=== PATIENT | female | born 1970 | race Caucasian/White ===

== ENCOUNTER 2016-12-07 05:06 | Emergency (ER) | payer MEDICARE, OTHER ==
[~2016-12-07] VITALS: Ht 160 cm; Wt 63.5 kg
[~2016-12-07 05:06] MED LIST: ALBU2.5V14 NEB; ALBU8.5H8 IH; ALPR0.5T PO; AMOX500C PO; BUPR1PAT8 TD; BUPR8TAB SL; CA C1TAB28 PO; CALC300T5 PO; CEFT1FRO2 IV; CIPR500T IV; CIPR500T94 PO; CLIN300C8; CLIN300C8 PO; CLON0.5T3 PO; CLON1TAB3 PO; CYCL-331 PO; CYCL5TAB PO; DULO30CA2 PO; ESCITALOPRAM OXA5 MG PO; ESOM40CA25 PO; ESZO3TAB28 PO; FAMO-63 PO; FENT1PAT17 TD; FLUO10CA13 PO; FLUO20TA11 PO; GABA-585 PO; GABA-586 PO; GLIP5TAB10 PO; HALO2TAB; HYDR-2679 PO; HYDR-2758 PO; HYDR-2766 PO; HYDR-971 PO; HYDR236S MM; HYDR4TAB45 PO; Hydrocodone Bit/Acetaminophen PO; IPRA3AMP NEB; IPRA4AER IH; KETO10TA PO; LACT1CAP25; LACT1CAP25 PO; LEVO125T PO; LEVO750P IV; LIDO700A4 TD; LINE600I IV; LINE600I2 IV; LINE600I9 IV; LINE600T PO; LORA0.5T96 PO; LORA10TA3 PO; METF500T4 PO; METR500T PO; MUPI22OI TP; MUPI22OI2 TP; NALO1DIS PO; NYST1000 SWSW; Nicotine TD; OLAN1CAP12 PO; OLAN1CAP3 PO; OLAN5TAB9 PO; ONDA4TAB10 SL; ONDA4TAB7 PO; OXYC-328; OXYC-328 PO; OXYC10TA PO; PANT40TA3 PO; POTA10CA PO; POTA20TA4 PO; PRED1TAB PO; PRED5TAB PO; QUET25TA5 PO; RISP0.5T3 PO; RISP1TAB3 PO; SUMA100T3 PO; SYMBYAX PO; TIZA4TAB PO; TORA; VITA1TAB3 PO; WARF-78 PO; WARF10TA45 PO; WARF5TAB7 PO; WARF7.5T6 PO; ZOLP10TA PO; ZOLP5TAB PO; [UNRECOGNIZED DRUG - CODE] IV; toradol PO
[2016-12-07] MEDS ORDERED: diphenhydrAMINE 50 MG/ML VIAL IVP ONE (06:00)
[2016-12-07] MEDS ORDERED: IV NORMAL SALINE 1,000ML 1,000 ML IV ONE (06:00)
[2016-12-07] MEDS ORDERED: KETOROLAC 15 MG/ML VIAL. IV ONE (06:00)
[2016-12-07] MEDS ORDERED: ONDANSETRON PF 4 MG/2 ML VIAL. IV ONE (06:00)
--- NOTE | 2016-12-07 06:17 | ED.ADGEN ---
Past History Past Medical History: Bipolar, Bronchitis, COPD, Diabetes, Hypothyroid, Migraines, Pneumonia (CHAITANYA BRIONES DO) Past Surgical History: Appendectomy, Cholecystectomy, Gastric Bypass, Hysterectomy, Other (CHAITANYA BRIONES DO) Smoking: Cigarettes, Greater than 1 pack/day Alcohol Use: None Drug Use: None (CHAITANYA BRIONES DO) Adult General HPI HPI Patient is a 46 year old woman, history of DVT in the left lower extremity, for which she is on Eliquis, COPD, hypertension bipolar disorder, who presents emergency Department with a complaint of a recurrent migraine headache. Patient states that symptoms she is experiencing consist of pressure her bilateral ears , and behind the right eye, consistent with previous migraine symptoms. She states it is more severe migraine that she usually experiences. Denies any triggering symptoms, states she took 2 doses of Imitrex at home without relief, states this usually does help to ramone the symptoms. States she is experiencing photophobia, nausea, and one episode of vomiting. Denies any fevers or chills, any injuries, any vision changes, any weakness numbness or tingling, any other new or different complaints. Patient states that she has been taking all other medications as directed by her primary care provider. She states that usually a "cocktail", including Toradol and Benadryl is affected in treating her headache. (CHAITANYA BRIONES DO) Review of Systems Review of Systems Constitutional: Denies fever or chills [] Eyes: Denies change in visual acuity, redness, or eye pain [] HENT: Denies nasal congestion or sore throat [] Respiratory: Denies cough or shortness of breath [] Cardiovascular: No additional information not addressed in HPI [] GI: Denies abdominal pain, nausea, vomiting, bloody stools or diarrhea [] : Denies dysuria or hematuria [] Musculoskeletal: Denies back pain or joint pain [] Integument: Denies rash or skin lesions [] Neurologic: Denies focal weakness or sensory changes. Headache, located behind the right eye, with pressure in both ears. [] Endocrine: Denies polyuria or polydipsia [] (CHAITANYA BRIONES DO) Current Medications Current Medications Current Medications Medications (Trade) Dose Ordered Sig/Papito Start Time Stop Time Status Last Admin Dose Admin Diphenhydramine HCl (Benadryl) 25 mg 1X ONCE 12/07/16 06:00 12/07/16 06:01 DC 12/07/16 06:00 25 MG Ketorolac Tromethamine (Toradol) 10 mg 1X ONCE 12/07/16 06:00 12/07/16 06:01 DC 12/07/16 06:00 10 MG Lidocaine HCl 3 ml 1X ONCE 12/07/16 07:00 12/07/16 07:01 DC 12/07/16 06:42 3 ML Methylprednisolone Sodium Succinate (SOLU-Medrol 40MG VIAL) 40 mg 1X ONCE 12/07/16 07:00 12/07/16 07:01 DC 12/07/16 07:00 40 MG Ondansetron HCl (Zofran) 4 mg 1X ONCE 12/07/16 06:00 12/07/16 06:01 DC 12/07/16 06:00 4 MG Promethazine HCl (Phenergan) 25 mg STK-MED ONCE 12/07/16 06:58 12/07/16 06:59 DC Promethazine HCl 12.5 mg/Sodium Chloride 50.5 ml @ 101 mls/hr 1X ONCE 12/07/16 07:00 12/07/16 07:29 DC 12/07/16 07:00 101 MLS/HR Sodium Chloride 50 ml @ As Directed STK-MED ONCE 12/07/16 06:59 12/07/16 07:00 DC (JENNIFER ROACH MD) Allergies Allergies Allergies Coded Allergies Type Severity Reaction Last Updated Verified ceftazidime (anhydrous) Allergy Severe Hives 04/05/15 Yes Sulfa (Sulfonamide Antibiotics) Allergy Intermediate Nausea 08/07/14 Yes carbamazepine Allergy Intermediate 05/05/15 Yes cefuroxime axetil Allergy Intermediate NOSE BLEED 08/07/14 Yes chlorpromazine HCl Allergy Intermediate Rash 08/07/14 Yes divalproex sodium Allergy Intermediate Rash 08/07/14 Yes doxepin Allergy Intermediate Rash 08/07/14 Yes lamotrigine Allergy Intermediate double vision, rash 05/05/15 Yes lithium Allergy Intermediate Rash 08/07/14 Yes nalbuphine Allergy Intermediate MORPHINE OK 05/05/15 Yes tetracycline Allergy Intermediate Rash 08/07/14 Yes vancomycin Allergy Intermediate Itching 08/07/14 Yes NSAIDS (Non-Steroidal Anti-Inflamma Adverse Reaction Mild upset stomach 3/9/ 16 Yes (JENNIFER ROACH MD) Physical Exam Physical Exam Constitutional: Well developed, well nourished, no acute distress, non-toxic appearance. [] HENT: Normocephalic, atraumatic, bilateral external ears normal, oropharynx moist, no oral exudates, nose normal. [] Eyes: PERRLA, EOMI, conjunctiva normal, no discharge. [] Neck: Normal range of motion, no tenderness, supple, no stridor. [] Negative jolt accentuation test. Cardiovascular:Heart rate regular rhythm, no murmur, S1, S2, rubs or gallops. [] Lungs & Thorax: Bilateral breath sounds clear to auscultation, no wheezing, rhonchi, rales. No chest wall crepitus or tenderness. [] Abdomen: Bowel sounds normal, soft, no tenderness, no rebound, rigidity, no guarding, no masses, no pulsatile masses. [] Skin: Warm, dry, no erythema, no rash. [] Back: No tenderness, no CVA tenderness. [] Extremities: No tenderness, no cyanosis, no clubbing, ROM intact, no edema. Patient with well-healed surgical incision status post total arthroplasty of the left knee, no swelling in the legs bilaterally. [] Neurologic: Alert and oriented X 3, normal motor function, normal sensory function, no focal deficits noted. [] Psychologic: Affect normal, judgement normal, mood normal. [] (CHAITANYA BRIONES DO) Current Patient Data Vital Signs Vital Signs Date Time Temp Pulse Resp B/P (MAP) Pulse Ox O2 Delivery O2 Flow Rate FiO2 12/07/16 07:51 83 16 140/91 (107) 97 Room Air 12/07/16 05:06 97.8 (JENNIFER ROACH MD) EKG EKG Not indicated. [] (CHAITANYA BRIONES DO) Radiology/Procedures Radiology/Procedures [] (CHAITANYA BRIONES DO) Course & Med Decision Making Course & Med Decision Making Pertinent Labs and Imaging studies reviewed. (See chart for details) Patient denies any new or concerning symptoms, states headache is consistent with previous episodes of migraine. No indication for additional imaging or laboratory studies basic and examination and patient's report. IV placed, patient given Toradol, IV fluids, Zofran and Benadryl, due to stated allergies. On reevaluation, patient states that the "edge is off" after receiving medications, she still remains uncomfortable. She confirms that Phenergan has been used previously without issue, she was then ordered Phenergan IV, along with Solu-Medrol, and nebulized lidocaine. She remains stable in the emergency department, receiving medications at time of shift change. I did discuss findings as above and clinical course with Dr. Roach, who will reevaluate the patient after additional medications are administered and disposition appropriately. (CHAITANYA BRIONES DO) Course & Med Decision Making 46-year-old female presenting to the ER with a headache similar to previous migraines. Vital signs unremarkable. Patient was signed out to me at sign out at 6 AM. Plans to follow-up on patient's condition after medications given. On examination the patient has no evidence of neck stiffness. Negative Kernig sign. Negative Brudzinski sign. She was feeling better and subsequent discharged home. The patient was then discharged home in stable condition to follow up with their primary care physician over the next 2-3 days. They were to return if their symptoms worsened or if they were concerned for any reason. [id number] discharge instructions and return precautions were given. Patient' s questions were answered to their satisfaction. Patient is comfortable plan. (JENNIFER ROACH MD) Final Impression Final Impression [] Problems: (CHAITANYA BRIONES DO) Dragon Disclaimer Dragon Disclaimer This electronic medical record was generated, in whole or in part, using a voice recognition dictation system. (CHAITANYA BRIONES DO) CHAITANYA BRIONES DO Dec 07, 2016 06:17 JENNIFER ROACH MD Dec 07, 2016 13:01
[2016-12-07] MEDS ORDERED: PROMETHAZINE 25 MG/ML VIAL IV ONE (06:58)
[2016-12-07] MEDS ORDERED: IV NORMAL SALINE 50ML 50 ML ONE (06:59)
[2016-12-07] MEDS ORDERED: methylPREDNISolone SOD SUCC PF 40 MG/ML VIAL. IV ONE (07:00)
[2016-12-07] MEDS ORDERED: PROMETHAZINE 12.5 MG in IV NORMAL SALINE 50ML 50 ML IV ONE (07:00)
[2016-12-07] MEDS ORDERED: LIDOCAINE 1% PF 30 ML VIAL. INH ONE (07:00)
[2016-12-07 07:51] VITALS: BP 140/91
== END 2016-12-07 07:44 | disposition home or self-care (01) ==
LOC: ER 05:06
DX: R51 Headache (principal); H93.8X3 Other specified disorders of ear, bilateral; F31.9 Bipolar disorder, unspecified; J44.9 Chronic obstructive pulmonary disease, unspecified; I10 Essential (primary) hypertension; G43.909 Migraine, unspecified, not intractable, without status migrainosus; E03.9 Hypothyroidism, unspecified; E11.9 Type 2 diabetes mellitus without complications; F17.210 Nicotine dependence, cigarettes, uncomplicated; Z98.84 Bariatric surgery status; Z88.2 Allergy status to sulfonamides; Z88.1 Allergy status to other antibiotic agents; Z88.8 Allergy status to other drugs, medicaments and biological substances
CPT/HCPCS: 94640; 96361; 96365; 96375; 99284; J1200; J1885; J2001; J2405; J2550; J2920; J7030

== ENCOUNTER 2017-01-22 04:00 | Emergency (ER) | payer MEDICARE, OTHER ==
[~2017-01-22] VITALS: Ht 160 cm; Wt 70.3 kg
--- NOTE | 2017-01-22 04:18 | PHYS DOC ---
Past History Past Medical History: Bipolar, Bronchitis, COPD, Diabetes, Hypothyroid, Migraines, Pneumonia Past Surgical History: Appendectomy, Cholecystectomy, Gastric Bypass, Hysterectomy, Other Smoking: Cigarettes, Greater than 1 pack/day Alcohol Use: None Drug Use: None Adult General Chief Complaint Chief Complaint: LOWER EXT PAIN HPI HPI Patient is a 46 year old F who presents with right hip pain. Patient states that she does not walk and uses a wheelchair and as she was transferring from the toilet to wheelchair she fell hitting her right hip on the arm of her wheelchair. Patient states she's had right hip pain ever since. Patient states the pain is into her right buttocks and is nonradiating. Patient denies any other injuries. Patient has no other complaints. Review of Systems Review of Systems GEN: Denies fevers, chills, sweats HEENT: Denies blurred vision, sore throat CV: Denies chest pain RESP: Denies shortness of air, cough GI: Denies n/v/d NEURO: Denies confusion, dizziness MSK: Right hip pain Allergies Allergies Allergies Coded Allergies Type Severity Reaction Last Updated Verified ceftazidime (anhydrous) Allergy Severe Hives 04/05/15 Yes Sulfa (Sulfonamide Antibiotics) Allergy Intermediate Nausea 08/07/14 Yes carbamazepine Allergy Intermediate 05/05/15 Yes cefuroxime axetil Allergy Intermediate NOSE BLEED 08/07/14 Yes chlorpromazine HCl Allergy Intermediate Rash 08/07/14 Yes divalproex sodium Allergy Intermediate Rash 08/07/14 Yes doxepin Allergy Intermediate Rash 08/07/14 Yes lamotrigine Allergy Intermediate double vision, rash 05/05/15 Yes lithium Allergy Intermediate Rash 08/07/14 Yes nalbuphine Allergy Intermediate MORPHINE OK 05/05/15 Yes tetracycline Allergy Intermediate Rash 08/07/14 Yes vancomycin Allergy Intermediate Itching 08/07/14 Yes NSAIDS (Non-Steroidal Anti-Inflamma Adverse Reaction Mild upset stomach Yes Physical Exam Physical Exam GEN.: No apparent distress. Alert and oriented. HEENT: Head is normocephalic, atraumatic NECK: Supple. LUNGS: CTAB. HEART: RRR, S1, S2 present. Peripheral pulses intact ABDOMEN: Soft, nontender. Positive bowel sounds. EXTREMITIES: Without any cyanosis, positive tenderness to palpation right hip with decreased range of motion secondary to pain. Tenderness to palpation of the right buttocks however no ecchymotic bruising seen NEUROLOGIC: Normal speech, normal tone PSYCHIATRIC: Normal affect, normal mood. SKIN: No ulcerations EKG EKG [] Radiology/Procedures Radiology/Procedures X-ray of the right hip and pelvis shows no obvious fracture [] Course & Med Decision Making Course & Med Decision Making Pertinent Labs and Imaging studies reviewed. (See chart for details) ED course: Patient was seen and examined in the emergency room x-rays of the right hip and pelvis were ordered, 50 g of fentanyl was ordered IM 0516: Updated patient on x-rays which showed no obvious fracture, patient was feeling better after pain medication administration and was ready go home. Recommended short-term follow-up with PCP for further evaluation and management. MDM: After reviewing the chart, CC/HPI/PMH, physical exam, [radiological results], I do not believe the patient has a significant right lower extremity injury warranting further workup and/or admission at this time. I believe patient is stable for discharge with short-term follow-up with her PCP in one to 2 days. Patient and family are comfortable being discharged. Additional verbal discharge instructions were provided to the patient and that if symptoms get worse or any new symptoms arise that are worrisome to the patient she is to return to the emergency room immediately [] Dragon Disclaimer Dragon Disclaimer This chart was dictated in whole or in part using Voice Recognition software in a busy, high-work load, and often noisy Emergency Department environment. It may contain unintended and wholly unrecognized errors or omissions. Departure Departure: Impression: Primary Impression: Right hip pain Disposition: 01 HOME, SELF-CARE Condition: IMPROVED Referrals: MATHEUS KIRK MD (PCP) Patient Instructions: Hip Pain Additional Instructions: Please follow-up with your family doctor in the next one to 2 days HUI ARANGO DO Jan 22, 2017 04:18
[2017-01-22] MEDS ORDERED: fentaNYL PF 100 MCG/2 ML VIAL IM ONE (05:00)
[2017-01-22 05:55] VITALS: BP 161/89
--- NOTE | 2017-01-22 08:01 | RAD ---
Indication persistent right hip pain associated with a fall 3 days previously. An AP view of the pelvis was obtained as well as targeted AP and frog leg views of the right hip. Chronic changes associated with the left hip are noted. No acute bony finding is seen
== END 2017-01-22 05:30 | disposition home or self-care (01) ==
LOC: ER 04:00
DX: M25.551 Pain in right hip (principal); J44.9 Chronic obstructive pulmonary disease, unspecified; E11.9 Type 2 diabetes mellitus without complications; E03.9 Hypothyroidism, unspecified; G43.909 Migraine, unspecified, not intractable, without status migrainosus; F31.9 Bipolar disorder, unspecified; F17.210 Nicotine dependence, cigarettes, uncomplicated; Z88.6 Allergy status to analgesic agent; Z88.1 Allergy status to other antibiotic agents; Z88.2 Allergy status to sulfonamides; Z88.8 Allergy status to other drugs, medicaments and biological substances; W05.0XXA Fall from non-moving wheelchair, initial encounter; Y93.89 Activity, other specified; Y99.8 Other external cause status; Y92.89 Other specified places as the place of occurrence of the external cause
CPT/HCPCS: 73502; 96372; 99284; J3010

== ENCOUNTER 2017-02-12 02:14 | Emergency (ER) | payer MEDICARE, OTHER ==
[~2017-02-12] VITALS: Ht 160 cm; Wt 71.6 kg
[2017-02-12] MEDS ORDERED: IV NORMAL SALINE 1,000ML 1,000 ML IV SCH (03:30)
[2017-02-12] MEDS ORDERED: diphenhydrAMINE 50 MG/ML VIAL IVP ONE (04:15)
[2017-02-12] MEDS ORDERED: HALOPERIDOL LACT 5 MG/ML VIAL. IVP ONE (04:15)
[2017-02-12] MEDS ORDERED: KETOROLAC 30 MG/ML VIAL. IV ONE (04:15)
[2017-02-12] MEDS ORDERED: KETOROLAC 30 MG/ML VIAL. ONE (04:18)
[2017-02-12] MEDS ORDERED: HALOPERIDOL LACT 5 MG/ML VIAL. ONE (04:18)
[2017-02-12] MEDS ORDERED: diphenhydrAMINE 50 MG/ML VIAL ONE (04:18)
[2017-02-12 04:32] LABS: BARBITURATES NEG (NEG); BENZODIAZEPINES NEG (NEG); CANNABINOIDS NEG (NEG); COCAINE POS (NEG); METHADONE NEG (NEG); OPIATES POS (NEG); PHENCYCLIDINE NEG (NEG)
[2017-02-12 04:33] LABS: AMPHETAMINE/METHAMPHETAMINE NEG (NEG)
[2017-02-12 04:38] LABS: ALBUMIN 3.4 g/dL (3.4-5.0); CALCIUM 8.9 mg/dL (8.5-10.1); CREATININE 1.1 mg/dL (0.6-1.0); DIRECT BILIRUBIN 0.1 mg/dL (0.0-0.2); GFR 53.5; POTASSIUM 4.1 mmol/L (3.5-5.1); TOTAL BILIRUBIN 0.2 mg/dL (0.2-1.0); TOTAL PROTEIN 7.7 g/dL (6.4-8.2)
[2017-02-12 04:42] LABS: CLARITY,URINE CLEAR; COLOR,URINE STRAW
[2017-02-12 04:45] LABS: AMORPHOUS SEDIMENT,UR PRESENT /HPF; BACTERIA,URINE FEW /HPF (0-FEW); BILIRUBIN,URINE NEG (NEG); GLUCOSE,URINE NEG (NEG); NITRITE,URINE NEG (NEG); SQUAMOUS EPITHELIAL CELL,UR FEW /LPF; UROBILINOGEN,URINE 0.2 mg/dL (0.2 mg/dL); WBC,URINE 0 /HPF (0-4)
[2017-02-12 04:49] LABS: BASO # 0.1 x10^3/uL (0.0-0.2); BASO % 0 % (0-3); EOS % 0 % (0-3); HEMATOCRIT 45.2 % (36.0-47.0); HEMOGLOBIN 14.5 g/dL (12.0-15.5); LYMPH # 5.2 x10^3/uL (1.0-4.8); LYMPH % 16 % (24-48); MEAN CORPUSCULAR HEMOGLOBIN 28 pg (25-35); MEAN CORPUSCULAR HGB CONC 32 g/dL (31-37); MEAN CORPUSCULAR VOLUME 86 fL (79-100); MONO # 2.2 x10^3/uL (0.0-1.1); MONO % 7 % (0-9); NEUT # 25.8 x10^3uL (1.8-7.7); NEUT % 77 % (31-73); PLATELET COUNT 344 x10^3/uL (140-400); RED BLOOD COUNT 5.25 x10^6/uL (3.50-5.40); RED CELL DISTRIBUTION WIDTH 14.8 % (11.5-14.5); WHITE BLOOD COUNT 33.4 x10^3/uL (4.0-11.0)
--- NOTE | 2017-02-12 04:58 | PHYS DOC ---
General Chief Complaint: HEADACHE Stated Complaint: HEADACHE X 2 DAYS Time Seen by MD: 02:31 Source: patient, other (live-in home health nurse) Exam Limitations: no limitations Problems: History of Present Illness Initial Comments Pt is 46/F to ED c/o headache. Pt states she gets chronic migraine headaches, states she has had frontal DAMON 10/ 10 throbbing for 24 hours. DAMON worse when up and active, no cough/fever/chills/ rash/nuchal rigidity. No focal neurodeficits, mild photophobia and nausea no emesis. DAMON not "worst of life" denies weight loss. She is brought to department by her home health nurse who adds that pt recently inpatient detox x 3 days for cocaine/crack but signed herself out. Reportedly used $800 cocaine in 24 hours past week, last use was $40 crack earlier today. Reportedly unable to obtain any drugs this evening so came to ED "drug seeking. " Pt recently received epidural steroid injections for back pain, DAMON not relieved with position aka spinal DAMON. DAMON is worse with activity and pt has had dark urine no cp/sob. Pt requesting pain meds. On eliquis for DVT PCP Dr Lubin Timing/Duration: 24 hours Severity: severe Modifying Factors: improves with other Associated Symptoms: headaches, other Allergies: Coded Allergies: ceftazidime (anhydrous) (Verified Allergy, Severe, Hives, 04/05/15) Sulfa (Sulfonamide Antibiotics) (Verified Allergy, Intermediate, Nausea, ) information on this allergy obtained when Dr. Bhandari called inpatient pharmacy looking for abx suggestion on this patient with multiple abx allergies.s zayra carbamazepine (Verified Allergy, Intermediate, 05/05/15) double vision cefuroxime axetil (Verified Allergy, Intermediate, NOSE BLEED, 08/07/14) nose bleed chlorpromazine HCl (Verified Allergy, Intermediate, Rash, 08/07/14) divalproex sodium (Verified Allergy, Intermediate, Rash, 08/07/14) doxepin (Verified Allergy, Intermediate, Rash, 08/07/14) lamotrigine (Verified Allergy, Intermediate, double vision, rash, 05/05/15 ) lithium (Verified Allergy, Intermediate, Rash, 08/07/14) nalbuphine (Verified Allergy, Intermediate, MORPHINE OK, 05/05/15) tetracycline (Verified Allergy, Intermediate, Rash, 08/07/14) vancomycin (Verified Allergy, Intermediate, Itching, 08/07/14) NSAIDS (Non-Steroidal Anti-Inflamma (Verified Adverse Reaction, Mild, upset stomach, 08/26/15) patent states NSAIDS upset her stomach Past Medical History Medical History: diabetes, other (cocaine addiction, bipolar, COPD, DM, hypothyroid, migraines, DVT, HTN) Surgical History: appendectomy, cholecystectomy, other (gastric bypass, hysterectomy, splenectomy) Family History Significant Family History: no pertinent family hx Social History Smoker: greater than 1 pack/day Alcohol: none Drugs: cocaine Review of Systems Constitutional: denies chills, denies fever, denies malaise, denies weakness EENTM: denies eye pain, denies blurred vision, denies ear pain, denies nose pain, denies throat pain, denies mouth pain Respiratory: denies cough, denies shortness of breath, denies wheezing Cardiovascular: denies chest pain, denies palpitations, denies syncope Gastrointestinal: denies abdominal pain, denies diarrhea, denies nausea, denies vomiting Genitourinary: denies dysuria, denies frequency, denies hematuria Musculoskeletal: see HPI Psychiatric/Neurological: see HPI Hematologic/Lymphatic: see HPI Physical Exam General Appearance: mild distress Eyes: bilateral eye normal inspection, bilateral eye PERRL, bilateral eye EOMI Ear, Nose, Throat: hearing grossly normal, normal ENT inspection (absent dentition, dry membranes), normal pharynx Neck: non-tender, supple Respiratory: normal breath sounds, no respiratory distress Cardiovascular: normal peripheral pulses, regular rate, rhythm Gastrointestinal: non tender, soft Back: no CVA tenderness, no vertebral tenderness Extremities: non-tender, normal inspection Neurologic/Psychiatric: back stayer II-XII nml as tested, no motor/sensory deficits, alert, oriented x 3, other (athetosis) Skin: normal color, warm/dry Orders, Labs, Meds EKG: NSR 97 bpm, nonspecific ST T changes no STEMI. Interpreted by me. Pertinent labs: White blood cells 33.4, d-dimer 0.22, urine drug screen positive for opiates and cocaine 0517: Pt received NS bolus, toradol/benadryl/haldol IV. RN notifies me that pt feeling better, DAMON resolved, she is requesting d/c home. Departure Time of Disposition: 05:18 Disposition: 01 HOME, SELF-CARE Diagnosis: Headache, cocaine abuse, leukocytosis, tobaccoism Condition: IMPROVED Patient Instructions: Cocaine Abuse and Chemical Dependency, Leukocytosis, Migraine Headache, [id number] Additional Instructions: Discontinue substance abuse seek medical assistance if necessary. Aggressive hydration with Gatorade and water. [id number] Tylenol as needed. Continue current medications. Follow-up with your doctor on Monday for recheck. Return to ED with new or changing symptoms. NATHALIE REEDER DO Feb 12, 2017 04:58
[2017-02-12 05:10] VITALS: BP 122/74
[2017-02-12 05:14] LABS: % ATYL 3 % (0-0); % BANDS 2 % (0-9); % LYMPHS 18 % (24-48); % MONOS 11 % (0-10); % SEGS 66 % (35-66); PLT ESTIMATE ADEQUATE (ADEQUATE)
== END 2017-02-12 05:15 | disposition home or self-care (01) ==
LOC: ER 02:14
DX: R51 Headache (principal); D72.829 Elevated white blood cell count, unspecified; F14.10 Cocaine abuse, uncomplicated; F17.210 Nicotine dependence, cigarettes, uncomplicated; E11.9 Type 2 diabetes mellitus without complications; E03.9 Hypothyroidism, unspecified; J44.9 Chronic obstructive pulmonary disease, unspecified; I10 Essential (primary) hypertension; G43.909 Migraine, unspecified, not intractable, without status migrainosus; Z86.718 Personal history of other venous thrombosis and embolism; Z98.84 Bariatric surgery status; Z88.6 Allergy status to analgesic agent; Z88.2 Allergy status to sulfonamides; Z88.8 Allergy status to other drugs, medicaments and biological substances; Z88.1 Allergy status to other antibiotic agents
CPT/HCPCS: 36415; 51701; 80048; 80076; 80307; 81001; 82550; 83735; 84484; 85007; 85025; 85379; 96361; 96374; 96375; 99285; G0480; J1200; J1630; J1885; G0479; J7030

== ENCOUNTER 2017-04-06 19:45 | Emergency (ER) | payer MEDICARE, OTHER ==
[~2017-04-06] VITALS: Ht 160 cm; Wt 71.6 kg
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
[2017-04-06] MEDS ORDERED: IOHEXOL 300 MG/ML 75 ML VIAL. IV ONE (21:15)
[2017-04-06] MEDS ORDERED: CONTRAST GIVEN MC PRN (21:30)
[2017-04-06] MEDS ORDERED: IOHEXOL 240 MG/ML 50ML VIAL. PO ONE (21:30)
[2017-04-06] MEDS ORDERED: MORPHINE SULFATE 10 MG/ML SYRINGE. SQ ONE (21:30)
--- NOTE | 2017-04-06 23:04 | RAD ---
CT pulmonary angiogram with intravenous contrast History: Fall, pain. Comparison: CT chest February 14, 2014. Technique: CT pulmonary angiogram of the chest with attention to the pulmonary arteries was performed after the administration of intravenous contrast, 75 mL Omnipaque-300. Axial 2-D reconstructions were obtained. Coronal 3-D MIPS were obtained of the pulmonary arterial vasculature of the chest. Exposure: One or more of the following individualized dose reduction techniques were utilized for this examination: 1. Automated exposure control 2. Adjustment of the mA and/or kV according to patient size 3. Use of iterative reconstruction technique Findings: Pulmonary arteries are adequately opacified. There is no evidence of pulmonary embolism. Trachea and mainstem bronchi appear patent. Visualized thyroid appears symmetric. No acute airspace disease is identified. No pneumothorax or pleural effusion is seen. No mediastinal lymphadenopathy is seen. Thoracic aorta has normal caliber is without evidence of dissection. Heart and pericardium are unremarkable. Multiple old left rib fracture deformities are seen. 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 Impression: 1. No evidence of pulmonary embolism. No acute abnormality identified in the chest. Electronically signed by: Martin Amos MD (04/06/2017 11:01 PM) [facility]
--- NOTE | 2017-04-06 23:09 | RAD ---
CT Abdomen and Pelvis With Intravenous Contrast: History: Fall, pain. Comparison: CT abdomen pelvis August 26, 2015. Technique: After administration of oral and intravenous contrast administration, 75 mL Omnipaque-300, CT of the abdomen and pelvis was performed. Exposure: One or more of the following individualized dose reduction techniques were utilized for this examination: 1. Automated exposure control 2. Adjustment of the mA and/or kV according to patient size 3. Use of iterative reconstruction technique Findings: Intrahepatic and extrahepatic biliary dilatation is favored to be reservoir effect from patient's cholecystectomy. No focal hepatic mass is identified. Spleen is absent. Pancreas and bilateral adrenal glands unremarkable. Bilateral kidneys enhance symmetrically. Right kidney demonstrates 1.7 cm cyst. No bowel obstruction or inflammation is seen. No free air or free fluid is identified. Urinary bladder is unremarkable. Uterus is absent. Left ovarian follicle seen. 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 Degenerative changes are present in the spine. No acute osseous traumatic injury is identified. Impression: 1. No acute abnormality identified in the abdomen or pelvis. Electronically signed by: Martin Amos MD (04/06/2017 11:06 PM) [facility]
[2017-04-06 23:34] LABS: ALBUMIN 2.7 g/dL (3.4-5.0); ALBUMIN/GLOBULIN RATIO 0.7 (1.0-1.7); CALCIUM 8.4 mg/dL (8.5-10.1); CREATININE 0.8 mg/dL (0.6-1.0); GFR 77.2; MAGNESIUM 1.7 mg/dL (1.8-2.4); POTASSIUM 3.6 mmol/L (3.5-5.1); TOTAL BILIRUBIN 0.2 mg/dL (0.2-1.0); TOTAL PROTEIN 6.6 g/dL (6.4-8.2)
[2017-04-07 00:24] LABS: HEMATOCRIT 41.6 % (36.0-47.0); HEMOGLOBIN 13.5 g/dL (12.0-15.5); RED BLOOD COUNT 4.79 x10^6/uL (3.50-5.40); RED CELL DISTRIBUTION WIDTH 15.1 % (11.5-14.5); WHITE BLOOD COUNT 21.9 x10^3/uL (4.0-11.0)
[2017-04-07 01:03] VITALS: BP 101/80
--- NOTE | 2017-04-07 11:08 | RAD ---
2 view CXR: Clinical indications: Injury from fall tonight. Right-sided rib pain and chest pain. Comparison: April 23, 2016.. Findings: No acute lung infiltrate or pleural effusion or pulmonary edema or lung mass or pneumothorax is seen. The heart size, pulmonary vasculature, mediastinum and both josefina are unremarkable. Old healed left rib cage fractures and right clavicular fracture and proximal right humerus fracture is seen. Impression: No acute radiographic abnormality is seen.
== END 2017-04-07 01:06 | disposition home or self-care (01) ==
LOC: ER 19:45
DX: S20.211A Contusion of right front wall of thorax, initial encounter (principal); D72.829 Elevated white blood cell count, unspecified; E83.42 Hypomagnesemia; E46 Unspecified protein-calorie malnutrition; J44.9 Chronic obstructive pulmonary disease, unspecified; E11.9 Type 2 diabetes mellitus without complications; E03.9 Hypothyroidism, unspecified; F31.9 Bipolar disorder, unspecified; G43.909 Migraine, unspecified, not intractable, without status migrainosus; F17.210 Nicotine dependence, cigarettes, uncomplicated; Z86.718 Personal history of other venous thrombosis and embolism; Z98.84 Bariatric surgery status; Z90.49 Acquired absence of other specified parts of digestive tract; Z90.710 Acquired absence of both cervix and uterus; Z90.81 Acquired absence of spleen; Z88.2 Allergy status to sulfonamides; Z88.1 Allergy status to other antibiotic agents; Z88.6 Allergy status to analgesic agent; Z88.8 Allergy status to other drugs, medicaments and biological substances; W06.XXXA Fall from bed, initial encounter; Y93.89 Activity, other specified; Y99.8 Other external cause status; Y92.89 Other specified places as the place of occurrence of the external cause
CPT/HCPCS: 36415; 71020; 71275; 74177; 80053; 83735; 84484; 85027; 85610; 85730; 96372; 99285; J2270; Q9966; Q9967

== ENCOUNTER → 2017-07-25 | Outpatient (CLI) | payer MEDICARE, OTHER ==
[~2017-07-25] MED LIST changes: +WARF-31 PO; -WARF5TAB7 PO
--- NOTE | 2017-07-25 13:24 | RAD ---
Right clavicle, 07/25/2017: History: Clavicular deformity There is extensive deformity of the proximal and mid clavicle compatible with old trauma. Correlation with the CT study of 04/06/2017 shows bony fusion of the sternoclavicular articulation. 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 No acute clavicular fracture is identified. There is also extensive proximal right humeral deformity compatible with old trauma. IMPRESSION: Extensive chronic posttraumatic changes involving the right clavicle as described above.
== END | disposition home or self-care (01) ==
LOC: PMG 12:50
PROVIDERS: ATTEND Physician Assistant Medical
DX: M95.8 Other specified acquired deformities of musculoskeletal system (principal); F17.210 Nicotine dependence, cigarettes, uncomplicated; Z98.890 Other specified postprocedural states
CPT/HCPCS: 73000

== ENCOUNTER 2017-08-03 21:43 | Emergency (ER) | payer MEDICARE, OTHER ==
[~2017-08-03] VITALS: Ht 160 cm; Wt 71.6 kg
[2017-08-03] MEDS ORDERED: IV NORMAL SALINE 1,000ML 1,000 ML IV ONE (23:00)
[2017-08-03] MEDS ORDERED: KETOROLAC 30 MG/ML VIAL. IV ONE (23:00)
[2017-08-03] MEDS ORDERED: PROCHLORPERAZINE 10 MG/2 ML VIAL. IV ONE (23:00)
[2017-08-03] MEDS ORDERED: diphenhydrAMINE 50 MG/ML VIAL IVP ONE (23:00)
[2017-08-03 23:18] LABS: BASO # 0.1 x10^3/uL (0.0-0.2); BASO % 1 % (0-3); EOS # 0.3 x10^3/uL (0.0-0.7); EOS % 2 % (0-3); HEMATOCRIT 39.5 % (36.0-47.0); HEMOGLOBIN 12.8 g/dL (12.0-15.5); LYMPH # 5.8 x10^3/uL (1.0-4.8); LYMPH % 33 % (24-48); MEAN CORPUSCULAR HEMOGLOBIN 27 pg (25-35); MEAN CORPUSCULAR HGB CONC 32 g/dL (31-37); MEAN CORPUSCULAR VOLUME 85 fL (79-100); MONO # 1.6 x10^3/uL (0.0-1.1); MONO % 9 % (0-9); NEUT # 9.7 x10^3uL (1.8-7.7); NEUT % 55 % (31-73); PLATELET COUNT 422 x10^3/uL (140-400); RED BLOOD COUNT 4.68 x10^6/uL (3.50-5.40); RED CELL DISTRIBUTION WIDTH 16.5 % (11.5-14.5); WHITE BLOOD COUNT 17.5 x10^3/uL (4.0-11.0)
--- NOTE | 2017-08-03 23:21 | EKG ---
[address] [address] Test Date: 2017-08-03 Test Time: 23:02:05 Pat Name: DARCI ANDREA Department: Room: Gender: F Institution Director: : 1970 Requested By: BRENDA YOUNGBLOOD Order Number: [id number] Reading MD: Philip Stock Measurements Intervals [place] Rate: 90 P: 0 MT: 178 QRS: -10 QRSD: 86 T: 10 QT: 356 QTc: 440 Interpretive Statements SINUS RHYTHM LEFTWARD AXIS NONSPECIFIC ST-T WAVE CHANGES. POSSIBLY ABNORMAL ECG RI6.01 Compared to ECG 02/12/2017 03:22:45 Left-axis deviation now present Electronically Signed On 08-09-2017 9:32:51 [employer] by Philip Stock
[2017-08-03 23:26] LABS: ALBUMIN/GLOBULIN RATIO 0.7 (1.0-1.7); CALCIUM 8.6 mg/dL (8.5-10.1); GFR 59.7; POTASSIUM 3.2 mmol/L (3.5-5.1); TOTAL BILIRUBIN 0.1 mg/dL (0.2-1.0); TOTAL PROTEIN 7.4 g/dL (6.4-8.2)
[2017-08-03 23:55] LABS: % BANDS 3 % (0-9); % EOS 1 % (0-5); % LYMPHS 42 % (24-48); % MONOS 5 % (0-10); % SEGS 49 % (35-66)
[2017-08-03 23:56] LABS: PLT ESTIMATE ADEQUATE (ADEQUATE)
[2017-08-04] MEDS ORDERED: IV NORMAL SALINE 1,000ML 1,000 ML IV SCH
[2017-08-04] MEDS ORDERED: ONDANSETRON PF 4 MG/2 ML VIAL. IV ONE
[2017-08-04] MEDS ORDERED: POTASSIUM CHLORIDE 20 MEQ TABLET.ER. PO ONE
[2017-08-04] MEDS ORDERED: BUTA1TAB23 PO (00:03)
--- NOTE | 2017-08-04 00:04 | PHYS DOC ---
Past History Past Medical History: Bipolar, Bronchitis, COPD, Diabetes, DVT, Gallstones, Hypothyroid, Liver Disease, Migraines, Pneumonia, Other Past Surgical History: Appendectomy, Cholecystectomy, Gastric Bypass, Hysterectomy, Spleenectomy, Tonsillectomy, Other Smoking: Cigarettes, Greater than 1 pack/day Alcohol Use: None Drug Use: None, Cocaine Adult General Chief Complaint Chief Complaint: HEADACHE HPI HPI Patient is a 46 year old female who presents with complaint of migraine headache. Patient states that her headache started 2 days ago. Patient states that she has history of migraine headaches and last had a similar headache 6 months ago. Patient states that she averages approximately 2-3 headaches per year. Patient states that she took Imitrex at home but did not help with her symptoms. Patient states that her pain is right-sided. Patient does have mild photophobia and nausea associated with her symptoms. Patient denies any fever, vision loss, or unilateral weakness. The patient rates her headache currently as 8 out of 10 on my evaluation. Patient states that she saw her doctor earlier today and states that his CBC showed that she had a white count of 19. Patient' s physician started her on doxycycline. Patient currently denies any cough, chest discomfort, ear pain, dysuria, or hematuria. Review of Systems Review of Systems Constitutional: Denies fever or chills [] Eyes: Photophobia, denies change in visual acuity, redness, or eye pain [] HENT: Denies nasal congestion or sore throat [] Respiratory: Denies cough or shortness of breath [] Cardiovascular: Denies chest pain or edema[] GI: Denies abdominal pain, nausea, vomiting, bloody stools or diarrhea [] : Denies dysuria or hematuria [] Musculoskeletal: Denies back pain or joint pain [] Integument: Denies rash or skin lesions [] Neurologic: Headache, denies focal weakness or sensory changes [] All other systems were reviewed and found to be within normal limits, except as documented in this note. Current Medications Current Medications Current Medications Medications (Trade) Dose Ordered Sig/[place] Start Time Stop Time Status Last Admin Dose Admin Diphenhydramine HCl (Benadryl) 50 mg 1X ONCE 08/03/17 23:00 08/03/17 23:01 DC 08/03/17 23:06 50 MG Fentanyl Citrate (Fentanyl 2ml Vial) 50 mcg 1X ONCE 08/04/17 00:00 08/04/17 00:01 08/03/17 23:55 50 MCG Ketorolac Tromethamine (Toradol) 30 mg 1X ONCE 08/03/17 23:00 08/03/17 23:01 DC 08/03/17 23:07 30 MG Ondansetron HCl (Zofran) 4 mg 1X ONCE 08/04/17 00:00 08/04/17 00:01 08/03/17 23:54 4 MG Potassium Chloride (Klor-Con) 40 meq 1X ONCE 08/04/17 00:00 08/04/17 00:01 08/03/17 23:54 40 MEQ Prochlorperazine Edisylate (Compazine) 10 mg 1X ONCE 08/03/17 23:00 08/03/17 23:01 DC 08/03/17 23:07 10 MG Sodium Chloride 1,000 ml @ 1,000 mls/hr Q1H 08/04/17 00:00 08/04/17 00:00 DC Allergies Allergies Allergies Coded Allergies Type Severity Reaction Last Updated Verified ceftazidime Allergy Severe Hives 04/05/15 Yes Sulfa (Sulfonamide Antibiotics) Allergy Intermediate Nausea 08/07/14 Yes carbamazepine Allergy Intermediate 05/05/15 Yes cefuroxime axetil Allergy Intermediate NOSE BLEED 08/07/14 Yes chlorpromazine HCl Allergy Intermediate Rash 08/07/14 Yes divalproex sodium Allergy Intermediate Rash 08/07/14 Yes doxepin Allergy Intermediate Rash 08/07/14 Yes lamotrigine Allergy Intermediate double vision, rash 05/05/15 Yes lithium Allergy Intermediate Rash 08/07/14 Yes nalbuphine Allergy Intermediate MORPHINE OK 05/05/15 Yes tetracycline Allergy Intermediate Rash 08/07/14 Yes vancomycin Allergy Intermediate Itching 08/07/14 Yes NSAIDS (Non-Steroidal Anti-Inflamma Adverse Reaction Mild upset stomach Yes Physical Exam Physical Exam Constitutional: Alert, afebrile, appears in mild discomfort. [] HENT: Normocephalic, atraumatic, bilateral external ears normal, oropharynx moist, no oral exudates, nose normal. [] Eyes: PERRLA, EOMI, mild photophobia present, conjunctiva normal, no discharge. [] Neck: Normal range of motion, no tenderness, supple, no stridor. [] Cardiovascular:Heart rate regular rhythm, no murmur [] Lungs & Thorax: Bilateral breath sounds clear to auscultation [] Abdomen: Bowel sounds normal, soft, no tenderness, no masses, no pulsatile masses. [] Skin: Warm, dry, no erythema, no rash. [] Back: No tenderness, no CVA tenderness. [] Extremities: No tenderness, no cyanosis, no clubbing, ROM intact, no edema. [] Neurologic: Alert and oriented X 3, normal motor function, normal sensory function, no focal deficits noted. [] Current Patient Data Vital Signs Vital Signs Date Time Temp Pulse Resp B/P (MAP) Pulse Ox O2 Delivery O2 Flow Rate FiO2 08/03/17 21:43 98.2 94 18 94 Room Air Lab Results Laboratory Tests Test 08/03/17 22:10 White Blood Count 17.5 x10^3/uL (4.0-11.0) H Red Blood Count 4.68 x10^6/uL (3.50-5.40) Hemoglobin 12.8 g/dL (12.0-15.5) Hematocrit 39.5 % (36.0-47.0) Mean Corpuscular Volume 85 fL (79-100) Mean Corpuscular Hemoglobin 27 pg (25-35) Mean Corpuscular Hemoglobin Concent 32 g/dL (31-37) Red Cell Distribution Width 16.5 % (11.5-14.5) H Platelet Count 422 x10^3/uL (140-400) H Neutrophils (%) (Auto) 55 % (31-73) Lymphocytes (%) (Auto) 33 % (24-48) Monocytes (%) (Auto) 9 % (0-9) Eosinophils (%) (Auto) 2 % (0-3) Basophils (%) (Auto) 1 % (0-3) Neutrophils # (Auto) 9.7 x10^3uL (1.8-7.7) H Lymphocytes # (Auto) 5.8 x10^3/uL (1.0-4.8) H Monocytes # (Auto) 1.6 x10^3/uL (0.0-1.1) H Eosinophils # (Auto) 0.3 x10^3/uL (0.0-0.7) Basophils # (Auto) 0.1 x10^3/uL (0.0-0.2) Segmented Neutrophils % 49 % (35-66) Band Neutrophils % 3 % (0-9) Lymphocytes % 42 % (24-48) Monocytes % 5 % (0-10) Eosinophils % 1 % (0-5) Platelet Estimate Adequate (ADEQUATE) Sodium Level 141 mmol/L (136-145) Potassium Level 3.2 mmol/L (3.5-5.1) L Chloride Level 104 mmol/L (98-107) Carbon Dioxide Level 25 mmol/L (21-32) Anion Gap 12 (6-14) Blood Urea Nitrogen 10 mg/dL (7-20) Creatinine 1.0 mg/dL (0.6-1.0) Estimated GFR (Cockcroft-Gault) 59.7 BUN/Creatinine Ratio 10 (6-20) Glucose Level 102 mg/dL (70-99) H Calcium Level 8.6 mg/dL (8.5-10.1) Total Bilirubin 0.1 mg/dL (0.2-1.0) L Aspartate Amino Transferase (AST) 17 U/L (15-37) Alanine Aminotransferase (ALT) 19 U/L (14-59) Alkaline Phosphatase 85 U/L (46-116) Total Protein 7.4 g/dL (6.4-8.2) Albumin 3.0 g/dL (3.4-5.0) L Albumin/Globulin Ratio 0.7 (1.0-1.7) L EKG EKG Interpreted by me: Heart rate 90, sinus rhythm, leftward axis, no acute ST/T- wave abnormalities present[] Radiology/Procedures Radiology/Procedures Not performed[] Course & Med Decision Making Course & Med Decision Making Pertinent Labs and Imaging studies reviewed. (See chart for details) Patient found a mild leukocytosis on blood work. The patient was treated with IV fluids, Compazine, Benadryl, Toradol, fentanyl, and Zofran. The patient is improved on reevaluation. Advised patient to continue on medications prescribed by her physician. The patient was given prescription for Fioricet for further treatment of breakthrough headache. Advised follow-up with her primary doctor in 3 days for reevaluation and return to emergency department for any worsening symptoms. Patient voiced understanding and in agreement with treatment plan. Dragon Disclaimer Dragon Disclaimer This electronic medical record was generated, in whole or in part, using a voice recognition dictation system. Departure Departure: Impression: Primary Impression: Migraine Disposition: 01 HOME, SELF-CARE Condition: IMPROVED Referrals: PHOEN[facility] STANFORD (PCP) Patient Instructions: Migraine Headache Additional Instructions: Follow-up to primary doctor in 3 days. Return to emergency department for any worsening symptoms. Scripts Butalb/Acetaminophen/Caffeine ([id number] 50-325-40) 1 Each Tablet 1 EACH PO Q4-6HRS Y for HEADACHE, #30 TAB Prov: BRENDA YOUNGBLOOD MD 08/04/17 Problem Qualifiers Primary Impression: Migraine Migraine type: without aura Status migrainosus presence: without status migrainosus Intractability: not intractable Qualified Codes: G43.009 - Migraine without aura, not intractable, without status migrainosus BRENDA YOUNGBLOOD MD Aug 04, 2017 00:04
[2017-08-04 00:15] VITALS: BP 140/79
== END 2017-08-04 00:18 | disposition home or self-care (01) ==
LOC: ER 21:43
DX: G43.909 Migraine, unspecified, not intractable, without status migrainosus (principal); F31.9 Bipolar disorder, unspecified; J44.9 Chronic obstructive pulmonary disease, unspecified; E11.9 Type 2 diabetes mellitus without complications; F17.210 Nicotine dependence, cigarettes, uncomplicated; E03.9 Hypothyroidism, unspecified; Z86.718 Personal history of other venous thrombosis and embolism; Z88.6 Allergy status to analgesic agent; Z88.1 Allergy status to other antibiotic agents; Z88.2 Allergy status to sulfonamides; Z88.8 Allergy status to other drugs, medicaments and biological substances
CPT/HCPCS: 36415; 80053; 85007; 85025; 93005; 96361; 96374; 96375; 99285; J0780; J1200; J1885; J2405; J3010; J7030

== ENCOUNTER 2017-08-26 14:51 | Emergency (ER) | payer MEDICARE, OTHER ==
[~2017-08-26] VITALS: Ht 160 cm; Wt 71.6 kg
[~2017-08-26 14:51] MED LIST changes: +BUTA1TAB23 PO; +WARF7.5T45 PO; -WARF7.5T6 PO
[2017-08-26 15:26] VITALS: BP 165/100
--- NOTE | 2017-08-26 16:39 | PHYS DOC ---
General Chief Complaint: UPPER EXTREMITY PAIN Stated Complaint: ARM PAIN Time Seen by MD: 15:13 Problems: History of Present Illness Initial Comments 46-year-old female reportedly comes to the ED complaining of arm pain. RN notifies me that the patient had calmed for possible cellulitis. Due to high ED volume and the patient's triage status she did have a little over an hour wait in the exam room before I would be able to see her. Staff notifies me that the patient came out of the exam room and really making multiple accusations against various staff members. Staff advised the patient that if she did not calmed down and stop being so disruptive security would be called. Patient reportedly left emergency department without being seen. I did not see or speak with the patient at any time, no history, physical exam, or intervention took place on my part. Allergies: Coded Allergies: ceftazidime (Verified Allergy, Severe, Hives, 04/05/15) Sulfa (Sulfonamide Antibiotics) (Verified Allergy, Intermediate, Nausea, ) information on this allergy obtained when Dr. Bhandari called inpatient pharmacy looking for abx suggestion on this patient with multiple abx allergies.s zayra carbamazepine (Verified Allergy, Intermediate, 05/05/15) double vision cefuroxime axetil (Verified Allergy, Intermediate, NOSE BLEED, 08/07/14) nose bleed chlorpromazine HCl (Verified Allergy, Intermediate, Rash, 08/07/14) divalproex sodium (Verified Allergy, Intermediate, Rash, 08/07/14) doxepin (Verified Allergy, Intermediate, Rash, 08/07/14) lamotrigine (Verified Allergy, Intermediate, double vision, rash, 05/05/15 ) lithium (Verified Allergy, Intermediate, Rash, 08/07/14) nalbuphine (Verified Allergy, Intermediate, MORPHINE OK, 05/05/15) tetracycline (Verified Allergy, Intermediate, Rash, 08/07/14) vancomycin (Verified Allergy, Intermediate, Itching, 08/07/14) NSAIDS (Non-Steroidal Anti-Inflamma (Verified Adverse Reaction, Mild, upset stomach, 08/26/15) patent states NSAIDS upset her stomach Past Medical History Surgical History: appendectomy, cholecystectomy, other Family History Significant Family History: no pertinent family hx Review of Systems All Other Systems: Reviewed and Negative (no review of systems took place) Physical Exam General Appearance: other (I did not perform a physical exam) Departure Disposition: 07 AGAINST MEDICAL ADVICE (left without being seen) BRENDA REEDER DO Aug 26, 2017 16:39
== END 2017-08-26 16:28 | disposition left against medical advice (07) ==
LOC: ER 14:51
DX: M79.603 Pain in arm, unspecified (principal); Z53.21 Procedure and treatment not carried out due to patient leaving prior to being seen by health care provider; Z88.1 Allergy status to other antibiotic agents; Z88.2 Allergy status to sulfonamides; Z88.8 Allergy status to other drugs, medicaments and biological substances; Z88.6 Allergy status to analgesic agent

== ENCOUNTER → 2017-08-26 16:45 | Emergency (ER) | payer MEDICARE, OTHER ==
[~2017-08-26] VITALS: Ht 160 cm; Wt 71.6 kg
--- NOTE | 2017-08-26 17:24 | PHYS DOC ---
General Chief Complaint: HAND PROBLEM Stated Complaint: RIGHT ARM PAIN Time Seen by MD: 17:00 Source: patient, RN/MD, RN notes reviewed, old records Problems: History of Present Illness Initial Comments 46 female checks back into the emergency department after speaking with houseman for right arm pain evaluation. Patient complains of pain localized to the dorsum of her right wrist. She localizes her discomfort to overlying the dorsal carpal rows, denies any trauma or new repetitive movements pain worse with movement better with rest. Pain is described as moderate to severe with movement almost absent at rest. Denies numbness tingling weakness or radiating symptoms, no rash streaking or warmth. Patient has history of right upper extremity cellulitis and osteomyelitis and metal plate was removed from her right humerus and infections have become less frequent. Patient gives varying histories, initially stating that she was out of pain medication however now that she is being seen once again has notified the houseman that she has plenty of pain medications at her home. She denies fever chills sweats or body aches no nausea vomiting malaise or fatigue. ED vital signs are stable moderately hypertensive however afebrile heart rate normal. Past Medical History: Bipolar, Bronchitis, COPD, Diabetes, DVT, Gallstones, Hypothyroid, Liver Disease, Migraines, Pneumonia, Other Past Surgical History: Appendectomy, Cholecystectomy, Gastric Bypass, Hysterectomy, Spleenectomy, Tonsillectomy, Other Smoking: Cigarettes, Greater than 1 pack/day Alcohol Use: None Drug Use: None, Cocaine Onset: last week Severity: moderate Pain/Injury Location: right wrist Method of Injury: unknown Modifying Factors: worse with jarring, worse with movement, improves with rest Allergies: Coded Allergies: ceftazidime (Verified Allergy, Severe, Hives, 04/05/15) Sulfa (Sulfonamide Antibiotics) (Verified Allergy, Intermediate, Nausea, ) information on this allergy obtained when Dr. Bhandari called inpatient pharmacy looking for abx suggestion on this patient with multiple abx allergies.s zayra carbamazepine (Verified Allergy, Intermediate, 05/05/15) double vision cefuroxime axetil (Verified Allergy, Intermediate, NOSE BLEED, 08/07/14) nose bleed chlorpromazine HCl (Verified Allergy, Intermediate, Rash, 08/07/14) divalproex sodium (Verified Allergy, Intermediate, Rash, 08/07/14) doxepin (Verified Allergy, Intermediate, Rash, 08/07/14) lamotrigine (Verified Allergy, Intermediate, double vision, rash, 05/05/15 ) lithium (Verified Allergy, Intermediate, Rash, 08/07/14) nalbuphine (Verified Allergy, Intermediate, MORPHINE OK, 05/05/15) tetracycline (Verified Allergy, Intermediate, Rash, 08/07/14) vancomycin (Verified Allergy, Intermediate, Itching, 08/07/14) NSAIDS (Non-Steroidal Anti-Inflamma (Verified Adverse Reaction, Mild, upset stomach, 08/26/15) patent states NSAIDS upset her stomach Past Medical History Medical History: other Surgical History: noncontributory, appendectomy, cholecystectomy, other Family History Significant Family History: no pertinent family hx Social History Smoker: cigarettes, greater than 1 pack/day Alcohol: none (CC noted) Drugs: cocaine Review of Systems Constitutional: denies chills, denies diaphoresis, denies fever, denies malaise , denies weakness Respiratory: denies cough, denies shortness of breath Cardiovascular: denies chest pain, denies palpitations Gastrointestinal: denies abdominal pain, denies nausea, denies vomiting Musculoskeletal: see HPI Skin: see HPI, denies change in color Psychiatric/Neurological: denies numbness, denies paresthesia, denies pre- existing deficit, denies tingling, denies weakness Physical Exam General Appearance: no apparent distress (disheveled appears older than stated age) Neck: full range of motion, supple Cardiovascular/Respiratory: normal peripheral pulses, no respiratory distress Elbow/Forearm: normal inspection, no evidence of injury, normal ROM Wrist: normal inspection, normal ROM, soft tissue tenderness (inappropriate response to very light touch of the skin as if in agonizing pain. No swelling no tissue warmth or skin discoloration no induration or other evidence of acute infection. No bony tenderness or palpable bony deformity) Hand: normal inspection, no evidence of injury, normal ROM Neurologic/Tendon: normal sensation, normal motor functions, normal tendon functions, responds to pain, no evidence tendon injury, withdraws to pain Psychiatric: alert, oriented x 3 Skin: normal color, warm/dry Orders, Labs, Meds I discussed findings at length with the patient. No obvious trauma no infectious process noted vital signs are stable. Patient's reaction to light touch of the skin is suspect. I discussed conservative treatment with immobilization. Discussed signs and symptoms to monitor as well as indications for urgent return to the department. Discussed prescription and over-the- counter medications and the patient's questions were answered her satisfaction. I reinforced to her that antibiotics should be used only with confirmed infection, especially in 120s them so frequently so resistance is not manufactured. Patient did express agreement she was neurovascularly intact after splint placed and she was discharged home in good condition. Departure Time of Disposition: 17:19 Disposition: HOME, SELF-CARE Diagnosis: Right Wrist Pain NOS Condition: STABLE Patient Instructions: RADHIKA - Routine Care for Injuries, [id number] Additional Instructions: As discussed no physical exam findings or vital sign alterations consistent with acute infection noted in the emergency department. Additionally as discussed, it is possible that you suffered a mild sprain or strain injury in your right wrist making transfers or with one of your falls. Conservative treatment indicated: Wear right wrist splint as needed for symptom control. RADHIKA, see handout. [id number] Tylenol as needed for baseline discomfort, use your home pain medications for severe breakthrough pain. Follow-up with your doctor on Monday for recheck. Return to ED with new or changing symptoms, (specifically skin changes, swelling , tissue warmth, fever, or other signs and symptoms consistent with systemic infection). Return to ED with new or changing symptoms. BRENDA REEDER DO Aug 26, 2017 17:24
[2017-08-26 17:30] VITALS: BP 152/90
== END | disposition home or self-care (01) ==
LOC: ER 16:45
DX: M25.531 Pain in right wrist (principal); J44.9 Chronic obstructive pulmonary disease, unspecified; E11.9 Type 2 diabetes mellitus without complications; E03.9 Hypothyroidism, unspecified; G43.909 Migraine, unspecified, not intractable, without status migrainosus; F17.210 Nicotine dependence, cigarettes, uncomplicated; Z86.718 Personal history of other venous thrombosis and embolism; Z98.84 Bariatric surgery status; Z88.2 Allergy status to sulfonamides; Z88.1 Allergy status to other antibiotic agents; Z88.8 Allergy status to other drugs, medicaments and biological substances; Z88.6 Allergy status to analgesic agent
CPT/HCPCS: 29125; 99283

== ENCOUNTER 2017-11-28 16:08 | Emergency (ER) | payer MEDICARE, OTHER ==
[~2017-11-28] VITALS: Ht 160 cm; Wt 71.6 kg
[~2017-11-28 16:08] MED LIST changes: -METF500T4 PO; +METF500T5 PO
[2017-11-28] MEDS ORDERED: LIDOCAINE 1%/EPI 1:100,000 20 ML VIAL. ONE (16:33)
[2017-11-28 17:10] VITALS: BP 146/90
[2017-11-28] MEDS ORDERED: CLIN300C8 PO (17:32)
--- NOTE | 2017-11-29 14:06 | ED.ADGEN ---
Past History Past Medical History: Anxiety, Bipolar, Depression Past Surgical History: Other Smoking: Cigarettes, Greater than 1 pack/day Alcohol Use: None Drug Use: None Adult General Chief Complaint Chief Complaint Finger laceration HPI HPI Patient is a 47-year-old right-handed female who presents with skin lacerations/ tear to the flexor surface of right index finger. Patient tore finger on wire fence prior to ED arrival. Tetanus is up-to-date. Patient has limited mobility and right hand due to prior injury. On exam, the patient has a jagged 2.5 laceration through the proximal PIP flexor crease. There is exposed tendon sheath which is not penetrated. Range of motion is intact. Bleeding is controlled, wound is clean. No other acute symptoms or complaints[] Review of Systems Review of Systems Review symptoms as per history of present illness. All other review symptoms are negative. All other systems were reviewed and found to be within normal limits, except as documented in this note. Current Medications Current Medications Current Medications Medications (Trade) Dose Ordered Sig/Papito Start Time Stop Time Status Last Admin Dose Admin Lidocaine/ Epinephrine (Xylocaine 1%-Epi 1:100,000) 20 ml STK-MED ONCE 11/28/17 16:33 11/28/17 16:34 DC Allergies Allergies Allergies Coded Allergies Type Severity Reaction Last Updated Verified ceftazidime Allergy Severe Hives 04/05/15 Yes Sulfa (Sulfonamide Antibiotics) Allergy Intermediate Nausea 08/07/14 Yes carbamazepine Allergy Intermediate 05/05/15 Yes cefuroxime axetil Allergy Intermediate NOSE BLEED 08/07/14 Yes chlorpromazine HCl Allergy Intermediate Rash 08/07/14 Yes divalproex sodium Allergy Intermediate Rash 08/07/14 Yes doxepin Allergy Intermediate Rash 08/07/14 Yes lamotrigine Allergy Intermediate double vision, rash 05/05/15 Yes lithium Allergy Intermediate Rash 08/07/14 Yes nalbuphine Allergy Intermediate MORPHINE OK 05/05/15 Yes tetracycline Allergy Intermediate Rash 08/07/14 Yes vancomycin Allergy Intermediate Itching 08/07/14 Yes NSAIDS (Non-Steroidal Anti-Inflamma Adverse Reaction Mild upset stomach Yes Physical Exam Physical Exam Constitutional: Well developed, well nourished, no acute distress, non-toxic appearance. [] HENT: Normocephalic, atraumatic, bilateral external ears normal, oropharynx moist, no oral exudates, nose normal. [] Eyes: PERRLA, EOMI, conjunctiva normal, no discharge. [] Extremities: Right hand, fourth finger, 2.5 cm laceration through the proximal PIP flexor crease. There is exposed tendon sheath which is not penetrated. Range of motion is intact. Bleeding is controlled, wound is clean [] Neurologic: Alert and oriented X 3, normal motor function, normal sensory function, no focal deficits noted. [] Psychologic: Affect normal, judgement normal, mood normal. [] Current Patient Data Vital Signs Vital Signs Date Time Temp Pulse Resp B/P (MAP) Pulse Ox O2 Delivery O2 Flow Rate FiO2 11/28/17 17:10 86 18 146/90 (108) 95 Room Air 11/28/17 16:20 98.1 EKG EKG [] Radiology/Procedures Radiology/Procedures [Laceration repair procedure note: Wound cleansed, copious irrigation, explored. No foreign bodies identified. No breach of tendon sheath or joint involvement. Wound closed with #4, simple interrupted 4-0 nylon sutures with good wound edge approximation] Course & Med Decision Making Course & Med Decision Making Pertinent Labs and Imaging studies reviewed. (See chart for details) [Wound repaired, Tetanus is uptodate. Typical wound care instructions ] Final Impression Final Impression [1. finger laceration] Dragromelia Disclaimer Dragon Disclaimer This electronic medical record was generated, in whole or in part, using a voice recognition dictation system. OVIDIO FLORES DO Nov 29, 2017 14:06
== END 2017-11-28 17:45 | disposition home or self-care (01) ==
LOC: ER 16:08
DX: S61.210A Laceration without foreign body of right index finger without damage to nail, initial encounter (principal); F17.210 Nicotine dependence, cigarettes, uncomplicated; Z88.8 Allergy status to other drugs, medicaments and biological substances; Z88.2 Allergy status to sulfonamides; Z88.1 Allergy status to other antibiotic agents; Z88.6 Allergy status to analgesic agent; W45.8XXA Other foreign body or object entering through skin, initial encounter; Y93.89 Activity, other specified; Y99.8 Other external cause status; Y92.89 Other specified places as the place of occurrence of the external cause
CPT/HCPCS: 12001; 99283

== ENCOUNTER 2018-03-06 19:51 | Emergency (ER) | payer MEDICARE, OTHER ==
[~2018-03-06 19:51] MED LIST changes: +CLON0.5T11 PO; -CLON0.5T3 PO; -CLON1TAB3 PO; +CLON1TAB4 PO; -IPRA3AMP NEB; +IPRA3AMP29 NEB; +METF500T16 PO; -METF500T5 PO
[2018-03-06 20:00] VITALS: BP 128/86
--- NOTE | 2018-03-07 05:46 | ED.ADGEN ---
Past History Past Medical History: Anxiety, Bipolar, Depression Past Surgical History: Other Smoking: Cigarettes, Greater than 1 pack/day Alcohol Use: None Drug Use: None Adult General Chief Complaint Chief Complaint Left mandible pain [facility] Patient is a 47-year-old female presents with left minimal pain over her TMJ region, nasal congestion and bilateral ear pain. No, cough, serial throat, sinus pain, tenderness mastoid pain tenderness to palpation. No fever chills, vomiting or sweats. No h/o trauma.[] Review of Systems Review of Systems ROS as per HPI All other systems were reviewed and found to be within normal limits, except as documented in this note. Allergies Allergies Allergies Coded Allergies Type Severity Reaction Last Updated Verified ceftazidime Allergy Severe Hives 04/05/15 Yes Sulfa (Sulfonamide Antibiotics) Allergy Intermediate Nausea 08/07/14 Yes carbamazepine Allergy Intermediate 05/05/15 Yes cefuroxime axetil Allergy Intermediate NOSE BLEED 08/07/14 Yes chlorpromazine HCl Allergy Intermediate Rash 08/07/14 Yes divalproex sodium Allergy Intermediate Rash 08/07/14 Yes doxepin Allergy Intermediate Rash 08/07/14 Yes lamotrigine Allergy Intermediate double vision, rash 05/05/15 Yes lithium Allergy Intermediate Rash 08/07/14 Yes nalbuphine Allergy Intermediate MORPHINE OK 05/05/15 Yes tetracycline Allergy Intermediate Rash 08/07/14 Yes vancomycin Allergy Intermediate Itching 08/07/14 Yes NSAIDS (Non-Steroidal Anti-Inflamma Adverse Reaction Mild upset stomach Yes Physical Exam Physical Exam Constitutional: Well developed, well nourished, no acute distress, non-toxic appearance. [] HENT: Normocephalic, atraumatic, no sinus tenderness, edema, bilateral external ears normal, serous effusions with TM fullness, no bulging, air-fluid levels blisters oropharynx moist, no oral exudates, no congestion clear rhinorrhea, left TMJ pain, tenderness with jaw opening. No clicking or malalignment.[] Eyes: PERRLA, EOMI, conjunctiva normal, no discharge. [] Neck: Normal range of motion, no tenderness, supple, no stridor. [] Extremities: No tenderness, no cyanosis, no clubbing, ROM intact, no edema. [] Neurologic: Alert and oriented X 3, normal motor function, normal sensory function, no focal deficits noted. [] Psychologic: Affect normal, judgement normal, mood normal. [] EKG EKG [] Radiology/Procedures Radiology/Procedures [] Course & Med Decision Making Course & Med Decision Making Pertinent Labs and Imaging studies reviewed. (See chart for details) [] Final Impression Final Impression [TMJ tenderness] Dragon Disclaimer Dragon Disclaimer This electronic medical record was generated, in whole or in part, using a voice recognition dictation system. OVIDIO FLORES DO Mar 07, 2018 05:46
== END 2018-03-06 20:38 | disposition home or self-care (01) ==
LOC: ER 19:51
DX: M26.602 Left temporomandibular joint disorder, unspecified (principal); R68.84 Jaw pain; R09.81 Nasal congestion; F17.210 Nicotine dependence, cigarettes, uncomplicated; Z88.2 Allergy status to sulfonamides; Z88.1 Allergy status to other antibiotic agents; Z88.6 Allergy status to analgesic agent; Z88.8 Allergy status to other drugs, medicaments and biological substances
CPT/HCPCS: 99281

== ENCOUNTER → 2018-03-22 | Outpatient (CLI) | payer MEDICARE, OTHER ==
[2018-03-06 20:00] VITALS: BP 128/86
--- NOTE | 2018-03-22 16:17 | RAD ---
EXAM: Cervical spine, 4 views. HISTORY: Pain. COMPARISON: None. FINDINGS: Frontal, lateral, swimmer's and odontoid views of the cervical spine are obtained. There is endplate remodeling with anterior osteophytosis at the mid and lower cervical levels. There is facet arthropathy at multiple levels. There is no fracture or significant listhesis. There is a chronic nonunited or partially nonunited fracture of the right clavicle. IMPRESSION: 1. Multilevel degenerative change involving the cervical spine. 2. No acute osseous finding. Electronically signed by: April Schmid MD (03/22/2018 4:13 PM) [facility]
== END | disposition home or self-care (01) ==
LOC: DXRAD 15:47
PROVIDERS: ATTEND Psychiatry & Neurology Neurology
DX: M47.892 Other spondylosis, cervical region (principal); M12.88 Other specific arthropathies, not elsewhere classified, other specified site; M25.78 Osteophyte, vertebrae
CPT/HCPCS: 72040

== ENCOUNTER 2018-05-30 20:05 | Inpatient (IN) | payer MEDICARE, OTHER ==
[~2018-05-30] VITALS: Ht 160 cm; Wt 71.2 kg
[~2018-05-30 20:05] MED LIST changes: +CLON1TAB11 PO; -CLON1TAB4 PO; +HYDR-2155 PO; -HYDR-2758 PO; -HYDR-2766 PO; +HYDR-2769 PO; +HYDR-3165 PO; -HYDR-971 PO; -OXYC-328; -OXYC-328 PO; +OXYC1TAB22; +OXYC1TAB22 PO
[2018-05-30] MEDS ORDERED: 0.9 % SODIUM CHLORIDE 10 ML DISP.SYRIN. IV PRN (20:30)
[2018-05-30] MEDS ORDERED: IV NORMAL SALINE 1,000ML 1,000 ML IV ONE ×2 (20:45→23:30)
[2018-05-30] MEDS ORDERED: IV NORMAL SALINE 1,000ML 1,000 ML IV SCH (21:00)
[2018-05-30] MEDS ORDERED: PIPERACILLIN/TAZOBACTAM 3.375 GM VIAL IV ONE (21:03)
[2018-05-30] MEDS ORDERED: VANCOMYCIN 1 GM VIAL. ONE (21:03)
--- NOTE | 2018-05-30 21:03 | PHYS DOC ---
Past History Past Medical History: Anxiety, Bipolar, Depression Past Surgical History: Appendectomy, Cholecystectomy, Hysterectomy, Spleenectomy, Other Smoking: Cigarettes, Greater than 1 pack/day Alcohol Use: None Drug Use: None Adult General Chief Complaint Chief Complaint: WEAKNESS/GENERALIZED HPI HPI Patient is a 47 year old female who presents with complaint of sore throat and generalized weakness. Patient states her symptoms started 5 days ago. The patient was seen by her primary doctor yesterday who tested her for strep pharyngitis and found to be negative. Patient however had additional lab work drawn that resulted today showing evidence of acute renal failure and high white count. Patient instructed to come to the emergency department for further evaluation. The patient states that she has been having severe lightheadedness when trying to stand up and states that she's not been able to walk due to her symptoms. Patient denies any chest pain, cough, or abdominal pain currently. Denies vomiting or diarrhea. Review of Systems Review of Systems Constitutional: Chills, subjective fever, lightheadedness[] Eyes: Denies change in visual acuity, redness, or eye pain [] HENT: Sore throat[] Respiratory: Dyspnea on exertion[] Cardiovascular: Denies chest pain or edema[] GI: Denies abdominal pain, nausea, vomiting, bloody stools or diarrhea [] : Denies dysuria or hematuria [] Musculoskeletal: Denies back pain or joint pain [] Integument: Denies rash or skin lesions [] Neurologic: Denies headache, focal weakness or sensory changes [] All other systems were reviewed and found to be within normal limits, except as documented in this note. Current Medications Current Medications Current Medications Medications (Trade) Dose Ordered Sig/Papito Start Time Stop Time Status Last Admin Dose Admin Sodium Chloride 2,010 ml @ 1,005 mls/hr Q2H 05/30/18 21:00 05/30/18 22:59 Sodium Chloride (Normal Saline Flush) 10 ml QSHIFT PRN 05/30/18 20:30 Allergies Allergies Allergies Coded Allergies Type Severity Reaction Last Updated Verified ceftazidime Allergy Severe Hives 04/05/15 Yes Sulfa (Sulfonamide Antibiotics) Allergy Intermediate Nausea 08/07/14 Yes carbamazepine Allergy Intermediate 05/05/15 Yes cefuroxime axetil Allergy Intermediate NOSE BLEED 08/07/14 Yes chlorpromazine HCl Allergy Intermediate Rash 08/07/14 Yes divalproex sodium Allergy Intermediate Rash 08/07/14 Yes doxepin Allergy Intermediate Rash 08/07/14 Yes lamotrigine Allergy Intermediate double vision, rash 05/05/15 Yes lithium Allergy Intermediate Rash 08/07/14 Yes nalbuphine Allergy Intermediate MORPHINE OK 05/05/15 Yes tetracycline Allergy Intermediate Rash 08/07/14 Yes vancomycin Allergy Intermediate Itching 08/07/14 Yes NSAIDS (Non-Steroidal Anti-Inflamma Adverse Reaction Mild upset stomach Yes Physical Exam Physical Exam Constitutional: Alert, afebrile, hypertensive, appears ill. [] HENT: Normocephalic, atraumatic, bilateral external ears normal, oropharynx diffusely erythematous, open carbuncle lesion on top lip, no oral exudates, nose normal. [] Eyes: PERRLA, EOMI, conjunctiva normal, no discharge. [] Neck: Normal range of motion, no tenderness, supple, no stridor. [] Cardiovascular: Tachycardia, regular rhythm, no murmur [] Lungs & Thorax: No accessory muscle usage, occasional rhonchi bilaterally, no rales[] Abdomen: Bowel sounds normal, soft, no tenderness, no masses, no pulsatile masses. [] Skin: Warm, dry, no erythema, no rash. [] Back: No tenderness, no CVA tenderness. [] Extremities: No tenderness, no cyanosis, no clubbing, ROM intact, no edema. [] Neurologic: Alert and oriented X 3, normal motor function, normal sensory function, no focal deficits noted. [] Current Patient Data Vital Signs Vital Signs Date Time Temp Pulse Resp B/P (MAP) Pulse Ox O2 Delivery O2 Flow Rate FiO2 05/30/18 20:18 98.1 124 18 98 Room Air Lab Results Laboratory Tests Test 05/30/18 21:07 05/30/18 21:24 05/30/18 22:00 White Blood Count 18.8 x10^3/uL Red Blood Count 4.34 x10^6/uL Hemoglobin 12.3 g/dL Hematocrit 38.6 % Mean Corpuscular Volume 89 fL Mean Corpuscular Hemoglobin 29 pg Mean Corpuscular Hemoglobin Concent 32 g/dL Red Cell Distribution Width 14.4 % Platelet Count 399 x10^3/uL Neutrophils (%) (Auto) 61 % Lymphocytes (%) (Auto) 25 % Monocytes (%) (Auto) 12 % Eosinophils (%) (Auto) 1 % Basophils (%) (Auto) 1 % Neutrophils # (Auto) 11.5 x10^3uL Lymphocytes # (Auto) 4.7 x10^3/uL Monocytes # (Auto) 2.3 x10^3/uL Eosinophils # (Auto) 0.2 x10^3/uL Basophils # (Auto) 0.1 x10^3/uL Segmented Neutrophils % 59 % Band Neutrophils % 1 % Lymphocytes % 21 % Atypical Lymphocytes % (Manual) 7 % Monocytes % 11 % Eosinophils % 1 % Platelet Estimate Adequate Target Cells Few Sodium Level 135 mmol/L Potassium Level 5.4 mmol/L Chloride Level 99 mmol/L Carbon Dioxide Level 22 mmol/L Anion Gap 14 Blood Urea Nitrogen 34 mg/dL Creatinine 4.2 mg/dL Estimated GFR (Cockcroft-Gault) 11.3 BUN/Creatinine Ratio 8 Glucose Level 106 mg/dL Lactic Acid Level 1.7 mmol/L Calcium Level 8.9 mg/dL Total Bilirubin 0.2 mg/dL Aspartate Amino Transf (AST/SGOT) 19 U/L Alanine Aminotransferase (ALT/SGPT) 62 U/L Alkaline Phosphatase 197 U/L Total Protein 7.2 g/dL Albumin 3.0 g/dL Albumin/Globulin Ratio 0.7 Urine Collection Type Unknown Urine Color Yellow Urine Clarity Cloudy Urine pH 5.0 Urine Specific Louise 1.025 Urine Protein Trace Urine Glucose (UA) Neg mg/dL Urine Ketones (Stick) Trace mg/dL Urine Blood Neg Urine Nitrite Neg Urine Bilirubin Neg Urine Urobilinogen Dipstick 0.2 mg/dL Urine Leukocyte Esterase Trace Urine RBC 6-10 /HPF Urine WBC 5-10 /HPF Urine Squamous Epithelial Cells Many /LPF Urine Bacteria Many /HPF Urine Hyaline Casts Few /HPF Urine Mucus Slight /LPF Influenza Type A (Rapid) Negative Influenza Type B (Rapid) Negative Current Medications Medications (Trade) Dose Ordered Sig/Papito Route PRN Reason Start Time Stop Time Status Last Admin Dose Admin Sodium Chloride (Normal Saline Flush) 10 ml QSHIFT PRN IV AFTER MEDS AND BLOOD DRAWS 05/30/18 20:30 Sodium Chloride 1,000 ml @ 1,000 mls/hr 1X ONCE IV 05/30/18 20:45 05/30/18 20:49 DC Sodium Chloride 2,010 ml @ 1,005 mls/hr Q2H IV 05/30/18 21:00 05/30/18 22:59 DC 05/30/18 21:00 Piperacillin Sod/ Tazobactam Sod (Zosyn) 3.375 gm STK-MED ONCE IV 05/30/18 21:03 05/30/18 21:05 DC Vancomycin HCl (Vancomycin) 1 gm STK-MED ONCE .ROUTE 05/30/18 21:03 05/30/18 21:05 DC Sodium Chloride 50 ml @ As Directed STK-MED ONCE .ROUTE 05/30/18 21:06 05/30/18 21:07 DC Vancomycin HCl 1.75 gm/Sodium Chloride 500 ml @ 250 mls/hr 1X ONCE IV 05/30/18 21:30 05/30/18 23:29 05/30/18 22:10 Piperacillin Sod/ Tazobactam Sod 3.375 gm/Sodium Chloride 50 ml @ 100 mls/hr 1X ONCE IV 05/30/18 21:45 05/30/18 22:14 DC 05/30/18 21:37 Ondansetron HCl (Zofran) 4 mg 1X ONCE IV 05/30/18 23:00 05/30/18 23:01 DC 05/30/18 22:59 EKG EKG Interpreted by me: Heart rate 100, sinus tachycardia, normal intervals, normal axis, no acute ST/T-wave abnormalities present[] Radiology/Procedures Radiology/Procedures One view AP chest x-ray interpreted by me: No acute infiltrates or effusions, normal cardiac silhouette [address] [address] IMAGING REPORT Signed PATIENT: DARCI ANDREA ACCOUNT: [id number] : 1970 LOCATION: ER AGE: 47 SEX: F EXAM STATUS: REG ER ORD. PHYSICIAN: BRENDA YOUNGBLOOD MD REASON: sore throat, sepsis, renal failure, eval for abscess PROCEDURE: CT SOFT TISSUE NECK WO CONTRST PQRS Compliance statement: One or more of the following individualized dose reduction techniques were utilized for this examination: 1. Automated exposure control. 2. Adjustment of the mA and/or kV according to patient size. 3. Use of iterative reconstruction technique. Indication:R/O abscess, PATIENT HAS ABNORMALITY IN BACK OF THROAT AND PAIN ON LEFT SIDE OF JAW TECHNIQUE: CT of the neck soft tissue without IV contrast with multiplanar reformats. COMPARISON:None FINDINGS: Limited exam due to lack of IV contrast. Visualized noncontrast sections through the brain are within normal limits. The noncontrast appearance of the nasopharynx, oropharynx and hypopharynx within normal limits. No retropharyngeal fluid collection or edema. The noncontrast appearance of the submandibular glands, parotid glands are within normal limits. Enlarged deep cervical lymph nodes are seen. Index lymph nodes as follows: Right level 2A lymph node measuring 1.8 x 0.9 cm. Left level 2A lymph node measuring 1.8 x 1.1 cm. Submental lymph node measuring 1.0 x 0.8 cm. No superficial soft tissue swelling. Visualized superior mediastinum within normal limits. Visualized lungs are clear. Complete opacification of the left maxillary sinus noted. Mucoperiosteal thickening seen of the visualized right maxillary sinus. No suspicious bony lesion. Old healed fracture deformity seen of the right medial clavicle. Multilevel moderate degenerative disc disease is seen in the cervical spine. IMPRESSION: Exam due to lack of IV contrast. 1. No retropharyngeal or tonsillar abscess. 2. Mildly enlarged cervical lymph nodes, nonspecific likely reactive. 3. Complete opacification of the left maxillary sinus likely secondary to chronic maxillary sinus disease. Electronically signed by: Frank Dalton DO (05/30/2018 10:17 PM) [employer] DICTATED AND SIGNED BY: FRANK DALTON DO DATE: 05/30/182210 CC: BRENDA YOUNGBLOOD MD; LUCILLE ZAYAS ~ [address] [address] IMAGING REPORT Signed PATIENT: DARCI ANDREA ACCOUNT: [id number] : 1970 LOCATION: ER AGE: 47 SEX: F EXAM STATUS: REG ER ORD. PHYSICIAN: BRENDA YOUNGBLOOD MD REASON: sepsis, renal failure, no identified source PROCEDURE: CT ABDOMEN PELVIS WO CONTRAST PQRS Compliance statement: One or more of the following individualized dose reduction techniques were utilized for this examination: 1. Automated exposure control. 2. Adjustment of the mA and/or kV according to patient size. 3. Use of iterative reconstruction technique. Indication:EXTREMELY HIGH WBC, SEPTIC, UNKNOWN SOURCE
NO IV CONTRAST - RENAL FAILURE TECHNIQUE: CT abdomen and pelvis without IV contrast with multiplanar reformats. COMPARISON: 04/06/2017 FINDINGS: Limited evaluation of solid abdominal and pelvic organs due to lack of IV contrast. Heart is normal in size. No pericardial or pleural effusion. Bibasilar subsegmental atelectasis or scarring. Noncontrast appearance of the liver, pancreas, adrenals within normal limits. Spleen is surgically absent. Status post cholecystectomy. Simple cyst is seen in the right kidney measuring 1.8 cm. No nephrolithiasis or hydronephrosis. No enlarged retroperitoneal or pelvic adenopathy. No free pelvic fluid or ascites. Status post partial colectomy with ileocolonic anastomosis in the right lower quadrant. No bowel obstruction. No pneumoperitoneum. Urinary bladder demonstrates no radiopaque stones. Status post hysterectomy. Status post ORIF of left iliac bone fracture with heterotopic bone formation in the region of hip joint. Multiple old healed rib fractures in the left lower hemithorax. Severe L4 S1 degenerative disc disease. IMPRESSION: Limited evaluation of solid abdominal and pelvic organs due to lack of IV contrast. 1. No bowel obstruction. 2. No abnormal intrapelvic or intra-abdominal fluid collection to suggest abscess. 3. No nephrolithiasis or hydronephrosis. Electronically signed by: Frank Dalton DO (05/30/2018 10:47 PM) [employer] DICTATED AND SIGNED BY: FRANK DALTON DO DATE: 05/30/18 2243 CC: BRENDA YOUNGBLOOD MD; LUCILLE ZAYAS ~ [] Course & Med Decision Making Course & Med Decision Making Pertinent Labs and Imaging studies reviewed. (See chart for details) Patient found to be tachycardic and hypotensive. Patient started on a 30 mL per kilo bolus of IV fluids. Patient had a decrease in heart rate 92 and blood pressure improved to 84/41. Patient started on additional bolus of 1 L normal saline. Patient has evidence of acute renal failure and leukocytosis, though a clearcut source of infection has not been found. It is possible that the patient 's carbuncle may have seeded bacteria into the blood stream, and this could be a potential source for sepsis. Patient started on vancomycin and Zosyn in the emergency department. CT imaging showed no definitive evidence of acute surgical process. I spoke with Dr. Purdy, hospitalist here at [facility]. He agreed to admit patient to the hospital for further care. I spoke with patient regarding plan of care and she is in agreement at time of admission. Critical care time excluding procedures: 50 minutes Dragon Disclaimer Dragon Disclaimer This electronic medical record was generated, in whole or in part, using a voice recognition dictation system. Departure Departure: Impression: Primary Impression: Severe sepsis Additional Impressions: Acute renal failure Carbuncle and furuncle of face Pharyngitis Disposition: ADMITTED INPATIENT Admitting Physician: Roberto Miller Condition: GUARDED Referrals: LUCILLE ZAYAS (PCP) Problem Qualifiers Additional Impressions: Acute renal failure Acute renal failure type: unspecified Qualified Codes: N17.9 - Acute kidney failure, unspecified Pharyngitis Pharyngitis/tonsillitis etiology: unspecified etiology Qualified Codes: J02.9 - Acute pharyngitis, unspecified BRENDA YOUNGBLOOD MD May 30, 2018 21:03
[2018-05-30] MEDS ORDERED: IV NORMAL SALINE 50ML 50 ML ONE (21:06)
[2018-05-30 21:26] LABS: BASO # 0.1 x10^3/uL (0.0-0.2); BASO % 1 % (0-3); EOS # 0.2 x10^3/uL (0.0-0.7); EOS % 1 % (0-3); HEMATOCRIT 38.6 % (36.0-47.0); HEMOGLOBIN 12.3 g/dL (12.0-15.5); LYMPH # 4.7 x10^3/uL (1.0-4.8); LYMPH % 25 % (24-48); MEAN CORPUSCULAR HEMOGLOBIN 29 pg (25-35); MEAN CORPUSCULAR HGB CONC 32 g/dL (31-37); MEAN CORPUSCULAR VOLUME 89 fL (79-100); MONO # 2.3 x10^3/uL (0.0-1.1); MONO % 12 % (0-9); NEUT # 11.5 x10^3uL (1.8-7.7); NEUT % 61 % (31-73); PLATELET COUNT 399 x10^3/uL (140-400); RED BLOOD COUNT 4.34 x10^6/uL (3.50-5.40); RED CELL DISTRIBUTION WIDTH 14.4 % (11.5-14.5); WHITE BLOOD COUNT 18.8 x10^3/uL (4.0-11.0)
[2018-05-30] MEDS ORDERED: VANCOMYCIN 1.75 GM in IV NORMAL SALINE 500ML 500 ML IV ONE (21:30)
[2018-05-30 21:39] LABS: ALBUMIN/GLOBULIN RATIO 0.7 (1.0-1.7); CALCIUM 8.9 mg/dL (8.5-10.1); CREATININE 4.2 mg/dL (0.6-1.0); GFR 11.3; POTASSIUM 5.4 mmol/L (3.5-5.1); TOTAL BILIRUBIN 0.2 mg/dL (0.2-1.0); TOTAL PROTEIN 7.2 g/dL (6.4-8.2)
[2018-05-30] MEDS ORDERED: PIPERACILLIN/TAZOBACTAM 3.375 GM in IV NORMAL SALINE 50ML 50 ML IV ONE (21:45)
[2018-05-30 21:56] LABS: BACTERIA,URINE MANY /HPF (0-FEW); BILIRUBIN,URINE NEG (NEG); CLARITY,URINE CLOUDY; COLOR,URINE YELLOW; GLUCOSE,URINE NEG (NEG); NITRITE,URINE NEG (NEG); UROBILINOGEN,URINE 0.2 mg/dL (0.2 mg/dL)
[2018-05-30 21:57] LABS: SQUAMOUS EPITHELIAL CELL,UR MANY /LPF
[2018-05-30 21:58] LABS: HYALINE CASTS, URINE FEW /HPF
--- NOTE | 2018-05-30 22:20 | RAD ---
PQRS Compliance statement: One or more of the following individualized dose reduction techniques were utilized for this examination: 1. Automated exposure control. 2. Adjustment of the mA and/or kV according to patient size. 3. Use of iterative reconstruction technique. Indication:R/O abscess, PATIENT HAS ABNORMALITY IN BACK OF THROAT AND PAIN ON LEFT SIDE OF JAW TECHNIQUE: CT of the neck soft tissue without IV contrast with multiplanar reformats. COMPARISON:None FINDINGS: Limited exam due to lack of IV contrast. Visualized noncontrast sections through the brain are within normal limits. The noncontrast appearance of the nasopharynx, oropharynx and hypopharynx within normal limits. No retropharyngeal fluid collection or edema. The noncontrast appearance of the submandibular glands, parotid glands are within normal limits. Enlarged deep cervical lymph nodes are seen. Index lymph nodes as follows: Right level 2A lymph node measuring 1.8 x 0.9 cm. Left level 2A lymph node measuring 1.8 x 1.1 cm. Submental lymph node measuring 1.0 x 0.8 cm. No superficial soft tissue swelling. Visualized superior mediastinum within normal limits. Visualized lungs are clear. Complete opacification of the left maxillary sinus noted. Mucoperiosteal thickening seen of the visualized right maxillary sinus. No suspicious bony lesion. Old healed fracture deformity seen of the right medial clavicle. Multilevel moderate degenerative disc disease is seen in the cervical spine. IMPRESSION: Exam due to lack of IV contrast. 1. No retropharyngeal or tonsillar abscess. 2. Mildly enlarged cervical lymph nodes, nonspecific likely reactive. 3. Complete opacification of the left maxillary sinus likely secondary to chronic maxillary sinus disease. Electronically signed by: Frank Dalton DO (05/30/2018 10:17 PM) [facility]
[2018-05-30 22:31] LABS: % BANDS 1 % (0-9); % EOS 1 % (0-5); % LYMPHS 21 % (24-48); % MONOS 11 % (0-10); % SEGS 59 % (35-66)
[2018-05-30 22:32] LABS: PLT ESTIMATE ADEQUATE (ADEQUATE)
[2018-05-30 22:33] LABS: TARGET CELLS FEW
[2018-05-30 22:34] LABS: % ATYL 7 % (0-0)
[2018-05-30 22:37] LABS: INFLUENZA A PATIENT NEGATIVE (NEGATIVE); INFLUENZA B PATIENT NEGATIVE (NEGATIVE)
--- NOTE | 2018-05-30 22:51 | RAD ---
PQRS Compliance statement: One or more of the following individualized dose reduction techniques were utilized for this examination: 1. Automated exposure control. 2. Adjustment of the mA and/or kV according to patient size. 3. Use of iterative reconstruction technique. Indication:EXTREMELY HIGH WBC, SEPTIC, UNKNOWN SOURCE
NO IV CONTRAST - RENAL FAILURE TECHNIQUE: CT abdomen and pelvis without IV contrast with multiplanar reformats. COMPARISON: 04/06/2017 FINDINGS: Limited evaluation of solid abdominal and pelvic organs due to lack of IV contrast. Heart is normal in size. No pericardial or pleural effusion. Bibasilar subsegmental atelectasis or scarring. Noncontrast appearance of the liver, pancreas, adrenals within normal limits. Spleen is surgically absent. Status post cholecystectomy. Simple cyst is seen in the right kidney measuring 1.8 cm. No nephrolithiasis or hydronephrosis. No enlarged retroperitoneal or pelvic adenopathy. No free pelvic fluid or ascites. Status post partial colectomy with ileocolonic anastomosis in the right lower quadrant. No bowel obstruction. No pneumoperitoneum. Urinary bladder demonstrates no radiopaque stones. Status post hysterectomy. Status post ORIF of left iliac bone fracture with heterotopic bone formation in the region of hip joint. Multiple old healed rib fractures in the left lower hemithorax. Severe L4 S1 degenerative disc disease. IMPRESSION: Limited evaluation of solid abdominal and pelvic organs due to lack of IV contrast. 1. No bowel obstruction. 2. No abnormal intrapelvic or intra-abdominal fluid collection to suggest abscess. 3. No nephrolithiasis or hydronephrosis. Electronically signed by: Frank Dalton DO (05/30/2018 10:47 PM) [facility]
[2018-05-30] MEDS ORDERED: ONDANSETRON PF 4 MG/2 ML VIAL. IV ONE (23:00)
[2018-05-30] MEDS ORDERED: PIP/TAZO PER PHARMACY MC PRN (23:45)
[2018-05-30] MEDS ORDERED: VANCOMYCIN PER PHARMACY MC PRN (23:45)
[2018-05-31] VITALS (38 sets, daily range): BP systolic 70–121; BP diastolic 37–77
[2018-05-31] MEDS ORDERED: ACETAMINOPHEN 325 MG TABLET PO PRN
[2018-05-31] MEDS ORDERED: IV NORMAL SALINE 1,000ML 1,000 ML IV SCH
--- NOTE | 2018-05-31 00:38 | EKG ---
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
[2018-05-31] MEDS ORDERED: PIPERACILLIN/TAZOBACTAM 2.25 GM in IV NORMAL SALINE 50ML 50 ML IV ONE (06:00)
[2018-05-31 08:26] LABS: BASO # 0.1 x10^3/uL (0.0-0.2); BASO % 1 % (0-3); EOS # 0.3 x10^3/uL (0.0-0.7); EOS % 2 % (0-3); HEMATOCRIT 34.3 % (36.0-47.0); LYMPH # 2.9 x10^3/uL (1.0-4.8); LYMPH % 21 % (24-48); MEAN CORPUSCULAR HEMOGLOBIN 29 pg (25-35); MEAN CORPUSCULAR HGB CONC 32 g/dL (31-37); MEAN CORPUSCULAR VOLUME 90 fL (79-100); MONO # 1.9 x10^3/uL (0.0-1.1); MONO % 14 % (0-9); NEUT # 8.5 x10^3uL (1.8-7.7); NEUT % 62 % (31-73); PLATELET COUNT 344 x10^3/uL (140-400); RED BLOOD COUNT 3.84 x10^6/uL (3.50-5.40); RED CELL DISTRIBUTION WIDTH 14.5 % (11.5-14.5); WHITE BLOOD COUNT 13.7 x10^3/uL (4.0-11.0)
[2018-05-31 08:38] LABS: CALCIUM 7.4 mg/dL (8.5-10.1); CREATININE 2.8 mg/dL (0.6-1.0); GFR 18.1; POTASSIUM 4.3 mmol/L (3.5-5.1)
[2018-05-31] MEDS ORDERED: Influenza vaccine per PROTOCOL. MC PRN (09:00)
[2018-05-31] MEDS ORDERED: ENOXAPARIN 30 MG/0.3 ML SYRINGE. SQ SCH (10:00)
[2018-05-31] MEDS: oxyCODONE/APAP 10/325 1 TAB TABLET PO PRN ×2 (11:10→20:58)
[2018-05-31] MEDS: LACTOBACILLUS RHAMNOSUS GG 1 CAPSULE. PO SCH ×2 (11:11→21:47)
[2018-05-31] MEDS: PIPERACILLIN/TAZOBACTAM 2.25 GM in IV NORMAL SALINE 50ML 50 ML IV SCH ×3 (12:20→23:42)
[2018-05-31] MEDS: IV NORMAL SALINE 1,000ML 1,000 ML IV SCH ×2 (13:15→17:27)
[2018-05-31] MEDS ORDERED: NOREPINEPHRINE BITARTRATE 8 MG in IV NORMAL SALINE 250ML 250 ML IV PRN (18:15)
[2018-05-31] MEDS ORDERED: PANT20TA3 PO (18:39)
[2018-05-31] MEDS ORDERED: POTA20TA4 PO (18:39)
[2018-05-31] MEDS ORDERED: BUSP7.5T IV (18:39)
[2018-05-31] MEDS ORDERED: GLIM2TAB2 PO (18:39)
[2018-05-31] MEDS ORDERED: OLAN20TA7 PO (18:39)
[2018-05-31] MEDS ORDERED: LEVO100T5 PO (18:39)
[2018-05-31] MEDS ORDERED: FLUO20CA8 PO (18:39)
[2018-05-31] MEDS ORDERED: GABA300C8 PO (18:39)
[2018-05-31] MEDS ORDERED: APIX5TAB3 PO (18:39)
[2018-05-31] MEDS ORDERED: LIDOCAINE 5% TOPICAL OINTMENT 35GM TUBE. TP PRN ×2 (20:00→20:15)
[2018-05-31] MEDS ORDERED: LOSA50TA14 PO (20:04)
[2018-05-31] MEDS ORDERED: LIDO35.4 TP (20:04)
[2018-05-31] MEDS ORDERED: APIXABAN 5 MG TABLET. PO SCH (21:00)
[2018-05-31] MEDS ORDERED: NON FORMULARY ITEM (Apixaban (Eliquis) 5 MG) PO SCH (21:00)
[2018-05-31] MEDS ORDERED: ONDANSETRON PF 4 MG/2 ML VIAL. IV PRN ×2 (21:00)
--- NOTE | 2018-05-31 21:23 | PN ---
DATE: 05/31/2018 SUBJECTIVE: The patient is resting, slightly propped up in bed, awake, alert. On questioning her, she continued to have generalized pain, continued to be somewhat hypotensive despite the fact that she has received almost 5 liters of fluid. Although, her kidney function is improving and she has good urine output. When I looked at her medication list, she has been on steroids before and she also has history of DVT, for which she is on Eliquis. PHYSICAL EXAMINATION: GENERAL: When I saw her this afternoon, she looked well and was clearly in no apparent respiratory distress, slightly pale, no jaundice, cyanosis, or thyromegaly. No jugular venous distension. No lower limb edema. VITAL SIGNS: Her heart rate was 82, blood pressure was 102/65, temperature was 97.6, respiratory rate was 14 and oxygen saturation was 96%. HEAD, EYES, EARS, NOSE AND THROAT: Showed normocephalic, atraumatic. NECK: Supple. HEART: Showed normal first and second sounds. No gallop, rub or murmur. CHEST: Clear to auscultation. No crepitation or rhonchi. ABDOMEN: Distended, soft, nontender. No guarding or rigidity. No organomegaly. All hernial orifice intact. Bowel sounds normal. NEUROLOGIC: She was awake, alert, responding appropriately. All cranial nerves intact. She moves upper extremities to much good extent than lower extremities. She is mostly bed bound and chair bound. Her intake over the last 24 hours was 2160, output was 900. LABORATORY WORK: Her lab work this morning showed a white cell count is down to 13,700, hemoglobin 11, hematocrit 34, MCV 90 and platelet count of 344,000 with normal manual differential. Her chemistry showed that her serum sodium was 142, potassium 4.3, chloride 109, bicarbonate 21, anion gap of 12, BUN 26, creatinine 2.8, estimated GFR was 18 mL per minute. Her glucose was 89, calcium was 7.4 and her lactic acid is down to 1.1. The plan is to continue with the IV fluid. We start her on Levophed to maintain her mean arterial pressure of more than 65. Given that she has been on steroids, I start her also on hydrocortisone 100 mg IV q. 8 hourly and we will call her pharmacy for an updated medication list, as she stated that she is not on Coumadin anymore, but she is on Eliquis. JESSIE JOHNSON MD DR: GALINDO/gregory JOB#: [id number] / [id number]
--- NOTE | 2018-05-31 21:45 | HP ---
ADMIT DATE: 05/31/2018 ADDENDUM TO HISTORY AND PHYSICAL PHYSICAL EXAMINATION: GENERAL APPEARANCE: On arrival to the Emergency Room, the patient looked unwell and was tachypneic. No pallor, jaundice, cyanosis, lymphadenopathy or thyromegaly. No jugular venous distention. No lower limb edema. VITAL SIGNS: Her heart rate was 124, blood pressure was 98/52, temperature was 98.1, respiratory rate was 18 and oxygen saturation was 98% on room air. HEAD, EYES, EARS, NOSE AND THROAT: Showed normocephalic, atraumatic. NECK: Supple. HEART: Showed normal first and second sounds. No gallop, rub or murmur. CHEST: Clear to auscultation. No crepitation or rhonchi. ABDOMEN: Distended, soft, nontender. No guarding or rigidity. No organomegaly. Hernial orifice intact. Bowel sounds normal. NEUROLOGIC: She is awake, alert, responding appropriately. All cranial nerves intact. She moves upper extremities to much good extent than lower extremities. She is mostly bed bound, wheelchair bound. She has marked deformity, particularly in her left lower extremity. LABORATORY DATA: On admission showed a white cell count of 18,800, hemoglobin 12.3, hematocrit 38.6, MCV 89 and platelet count of 399,000 with normal manual differential. Her chemistry showed a serum sodium of 135, potassium 5.4, chloride 99, bicarbonate 22, anion gap of 14, BUN of 34, creatinine 4.2, estimated GFR was 11.3. Her glucose was 106. Lactic acid was 1.7, calcium was 8.9. Total bilirubin, AST were normal. ALT and alkaline phosphatase slightly elevated. Total protein was 7.2, albumin was 3. Her urinalysis showed the urine was yellow, cloudy with a pH of 5, specific gravity of 1.025. There was a trace of protein. The urine was negative for glucose, trace of ketones, negative for blood and nitrite, trace of leukocyte esterase, 6-10 rbc's, 5-10 wbc's and many bacteria. Her influenza A and B were negative. RADIOLOGICAL DATA: She has had a chest x-ray. Unfortunately done, not reported by the radiologist; however, it shows that she was not probably positioned but the lung nelson are clear. She has what seemed to be an old clavicular fracture and also some old rib fracture of the left side. She did have a CT scan of the soft tissue of the neck, which basically showed no lateral pharyngeal or tonsillar abscess. She has mildly enlarged cervical lymph node, nonspecific, likely reactive. She has complete opacification of the left maxillary sinus, likely secondary to chronic maxillary sinusitis. She did have also CT scan of the abdomen and pelvis, which was without contrast given her impaired kidney function and showed that the had a CT scan has limited evaluation of the solid abdominal and pelvic organs due to lack of IV contrast; however, there is no bowel obstruction, no intrapelvic and intraabdominal fluid collection to suggest abscess. No nephrolithiasis or hydronephrosis. ASSESSMENT AND PLAN: In summary, this is a 47-year-old female patient who was admitted with sepsis and acute renal failure. The source of sepsis is not clear. She had an abscess on the upper lip on the left side. She has also what seems to be urinary tract infection. The patient will be treated aggressively with IV fluid and IV antibiotic. She is on Zosyn and vancomycin and Levaquin. Admitted to the ICU for close observation. JESSIE JOHNSON MD DR: GALINDO/gregory JOB#: [id number] / [id number]
[2018-05-31] MEDS: busPIRone 5 MG TABLET. PO SCH (21:46)
[2018-05-31] MEDS: POTASSIUM CHLORIDE 20 MEQ TABLET.ER. PO SCH (21:48)
[2018-05-31] MEDS: GABAPENTIN 300 MG CAPSULE. PO SCH (21:52)
[2018-05-31] MEDS ORDERED: VANCOMYCIN 1 GM in IV NORMAL SALINE 250ML 250 ML IV SCH (22:00)
[2018-05-31] MEDS: HYDROCORTISONE SOD SUCC/PF 100 MG/2 ML VIAL. IV SCH (22:13)
[2018-06-01] VITALS (30 sets, daily range): BP systolic 73–135; BP diastolic 38–75
[2018-06-01] MEDS: IV NORMAL SALINE 1,000ML 1,000 ML IV SCH ×4 (01:09→22:44)
--- NOTE | 2018-06-01 04:14 | HP ---
ADMIT DATE: 05/30/2018 HISTORY OF PRESENT ILLNESS: The patient is a 47-year-old female patient, who presented to the Emergency Room with a complaint of a sore throat and generalized weakness. She stated that her symptoms started about 5 days ago. The patient was seen by her primary doctor, who tested her for streptococcal pharyngitis and found to be negative. The patient, however, had additional lab work drawn that resulted today showing evidence of acute renal failure and high white cell count. She was instructed to come to the Emergency Department for further evaluation. The patient states that she has been having severe lightheadedness when trying to stand up and stated that she has not been able to walk due to her symptoms. She denied, however, any chest pain, shortness of breath, cough, phlegm or hemoptysis. She denied any abdominal pain. She was extensively evaluated in the Emergency Room and was found to have marked leukocytosis with a white cell count of 18,800. Her creatinine was high at 4.2. She has also some elevated liver enzymes; however, her lactic acid was 1.7 and she was admitted with sepsis with organ dysfunction. Her kidney function has dramatically risen with a creatinine rising to 4.2 from a baseline of 1 about 2 years ago. PAST MEDICAL HISTORY: Significant for type 2 diabetes mellitus, hypertension, hypothyroidism, chronic obstructive pulmonary disease and generalized osteoarthritis. PAST SURGICAL HISTORY: Significant for thyroidectomy, bilateral knee reconstructive surgery, left hip surgery in 2010; left arm fracture, status post open reduction and internal fixation; right arm fracture, status post open reduction and internal fixation; appendectomy, cholecystectomy, total abdominal hysterectomy and bilateral salpingo-oophorectomy, back surgery. She also has a partial resection of small bowel and partial colectomy. She underwent multiple colonoscopies. ALLERGIES: She has a multitude of allergies including NONSTEROIDAL ANTI-INFLAMMATORY MEDICATIONS, SULFA DRUGS, CARBAMAZEPINE, CEFTAZIDIME, CEFUROXIME, CHLORPROMAZINE, DIVALPROEX, DOXEPIN, LAMOTRIGINE, LITHIUM. MEDICATIONS: She is currently on the following medications: She was on clindamycin 300 mg 2 times a day, nystatin suspension 5 mL swish and swallow 4 times a day, ipratropium bromide, albuterol sulfate in 3 mL by nebulizer 4 times a day, albuterol sulfate inhaler 2 puffs every 4-6 hours, cyclobenzaprine 10 mg 3 times a day, Coumadin 5 mg daily, oxycodone/CPAP 10/325 one tablet 4 times a day, butalbital/acetaminophen/caffeine one tablet every 4-6 hours, clonazepam 1 mg 3 times a day, gabapentin 300 mg 3 times a day, olanzapine/fluoxetine for Symbyax one tablet at bedtime and Lunesta 3 mg at bedtime. She is on potassium chloride 20 mEq 3 times a day, ondansetron 4 mg for Zofran every 6 hours, Protonix 40 mg once a day, prednisone 5 mg daily, glipizide 5 mg daily, levothyroxine sodium for Synthroid 125 mcg once a day, and nicotine patch 21 mg topically daily. FAMILY HISTORY: She has one brother and one sister, both healthy. Her father is still alive and has diabetes and hypertension. Again, mother is alive and has diabetes and hypertension. SOCIAL HISTORY: She is , has no children. She smokes 1 pack a day, does not drink alcohol. She used to smoke marijuana. REVIEW OF SYSTEMS: The patient denied any blurring of vision, cataract, glaucoma or macular degeneration. Denied any earache, tinnitus or sensorineural deafness. Denied any nosebleeds, stuffy nose or postnasal drip. Denied any sore throat, sore tongue, toothache, hoarseness of voice or difficulty swallowing. Denied any nausea, vomiting, diarrhea or constipation. Denied any hematemesis, melena or hematochezia. Denied any dysuria, frequency or hematuria. Denied any chest pain, shortness of breath, orthopnea, paroxysmal nocturnal dyspnea. Denied any cough, phlegm or hemoptysis. Denied any chills, rigors or fever. Did complain of dizziness and lightheadedness. DICTATION ENDS HERE JESSIE JOHNSON MD DR: GALINDO/gregory JOB#: [id number] / [id number]
[2018-06-01] MEDS ORDERED: diphenhydrAMINE 50 MG/ML VIAL IVP PRN (05:30)
[2018-06-01] MEDS: HYDROCORTISONE SOD SUCC/PF 100 MG/2 ML VIAL. IV SCH ×3 (05:43→21:21)
[2018-06-01] MEDS: LEVOTHYROXINE 100 MCG TABLET PO SCH (05:44)
[2018-06-01] MEDS: VANCOMYCIN PER PHARMACY MC PRN (06:20)
[2018-06-01 06:25] LABS: BASO % 1 % (0-3); EOS % 0 % (0-3); HEMATOCRIT 34.6 % (36.0-47.0); HEMOGLOBIN 10.9 g/dL (12.0-15.5); LYMPH # 1.7 x10^3/uL (1.0-4.8); LYMPH % 20 % (24-48); MEAN CORPUSCULAR HEMOGLOBIN 28 pg (25-35); MEAN CORPUSCULAR HGB CONC 31 g/dL (31-37); MEAN CORPUSCULAR VOLUME 90 fL (79-100); MONO # 0.4 x10^3/uL (0.0-1.1); MONO % 5 % (0-9); NEUT # 6.4 x10^3uL (1.8-7.7); NEUT % 75 % (31-73); PLATELET COUNT 341 x10^3/uL (140-400); RED BLOOD COUNT 3.83 x10^6/uL (3.50-5.40); RED CELL DISTRIBUTION WIDTH 14.4 % (11.5-14.5); WHITE BLOOD COUNT 8.6 x10^3/uL (4.0-11.0)
[2018-06-01 06:34] LABS: ALBUMIN 2.3 g/dL (3.4-5.0); ALBUMIN/GLOBULIN RATIO 0.6 (1.0-1.7); CALCIUM 7.4 mg/dL (8.5-10.1); CREATININE 1.7 mg/dL (0.6-1.0); GFR 32.2; POTASSIUM 4.2 mmol/L (3.5-5.1); TOTAL BILIRUBIN 0.2 mg/dL (0.2-1.0); TOTAL PROTEIN 6.4 g/dL (6.4-8.2)
[2018-06-01] MEDS: PIPERACILLIN/TAZOBACTAM 2.25 GM in IV NORMAL SALINE 50ML 50 ML IV SCH ×4 (07:43→23:22)
[2018-06-01] MEDS: LACTOBACILLUS RHAMNOSUS GG 1 CAPSULE. PO SCH ×2 (08:05→20:32)
[2018-06-01] MEDS: GLIMEPIRIDE 2 MG TABLET PO SCH (08:06)
[2018-06-01] MEDS: PANTOPRAZOLE 40 MG TABLET. PO SCH (08:06)
[2018-06-01] MEDS: APIXABAN 5 MG TABLET. PO SCH ×2 (08:06→20:32)
[2018-06-01] MEDS: POTASSIUM CHLORIDE 20 MEQ TABLET.ER. PO SCH ×3 (08:08→20:32)
[2018-06-01] MEDS: oxyCODONE/APAP 10/325 1 TAB TABLET PO PRN ×2 (08:08→21:21)
[2018-06-01] MEDS ORDERED: OLANZapine 10 MG TABLET PO SCH (09:00)
[2018-06-01] MEDS: busPIRone 5 MG TABLET. PO SCH ×3 (09:00→20:31)
[2018-06-01] MEDS: VANCOMYCIN 1 GM in IV NORMAL SALINE 250ML 250 ML IV SCH (11:18)
[2018-06-01] MEDS: FLUoxetine HCL 20 MG CAPSULE PO SCH (13:00)
--- NOTE | 2018-06-01 18:32 | PN ---
DATE: 06/01/2018 SUBJECTIVE: The patient is resting, slightly propped up, in no apparent distress. She is off Levophed. Her blood pressure is stable. She is afebrile. Her white cell count is down and her creatinine actually has dramatically improved. We are not putting any anticoagulant. She was seen by the vascular surgeon, the piercing artist. She has a large huge hematoma on his right gluteal area and the decision was not to anticoagulate. I have discussed this with him and his multiple times. OBJECTIVE: GENERAL: On examining her this morning, she was resting slightly propped up in bed, in no apparent respiratory distress. She is awake, alert with no pallor, jaundice, cyanosis or thyromegaly. No jugular venous distension. No lower limb edema. VITAL SIGNS: Her heart rate was 97, blood pressure was 96/46, temperature was 98, respiratory rate was 18 and oxygen saturation was 96% on room air. HEAD, EYES, EARS, NOSE AND THROAT: Showed normocephalic, atraumatic. NECK: Supple. HEART: Showed normal first and second heart sounds with no gallop, rub or murmur. CHEST: Clear to auscultation. No crepitation or rhonchi. ABDOMEN: Distended, soft, nontender. NEUROLOGIC: She was awake, alert, responding appropriately. Her cranial nerves intact. She moves extremities without difficulty. She is mostly bed bound, wheelchair bound. Her intake over the last 24 hours was 2160, output was 900. LABORATORY DATA: Her lab work showed a white cell count of 8600, hemoglobin 11, hematocrit 35, MCV 90 and platelet count of 341,000 with normal manual differential. Her chemistry showed a serum sodium 136, potassium 4.2, chloride 106, bicarbonate 19, anion gap of 11, BUN 16, creatinine 1.7, estimated GFR was 32 mL per minute. Her glucose was 154, calcium was 7.4. Total bilirubin, AST, ALT were normal. Alkaline phosphatase slightly elevated. Total protein was 6.4, albumin was 2.3. So far, her blood cultures are negative. ASSESSMENT: 1. Sepsis, source of which is not clear. She has what seems to be an abscess in the right upper lip and also severe maxillary sinusitis. 2. [id number] kidney injury, improving. Questionable urinary tract infection. We will continue for one more dose of vancomycin. If the blood culture continues to be negative, we will discontinue that. Continue with all other medication. Continue with Eliquis for her treatment of a DVT and if she remains stable today she can be transferred to the floor. JESSIE JOHNSON MD DR: GALINDO/gregory JOB#: [id number] / [id number]
[2018-06-01] MEDS: GABAPENTIN 300 MG CAPSULE. PO SCH (20:31)
[2018-06-02] VITALS (18 sets, daily range): BP systolic 91–159; BP diastolic 51–97
[2018-06-02] MEDS: HYDROCORTISONE SOD SUCC/PF 100 MG/2 ML VIAL. IV SCH ×3 (04:54→21:26)
[2018-06-02] MEDS: LEVOTHYROXINE 100 MCG TABLET PO SCH (04:54)
[2018-06-02] MEDS: PIPERACILLIN/TAZOBACTAM 2.25 GM in IV NORMAL SALINE 50ML 50 ML IV SCH ×3 (04:54→17:34)
[2018-06-02 07:06] LABS: HEMATOCRIT 29.8 % (36.0-47.0); HEMOGLOBIN 9.4 g/dL (12.0-15.5); RED BLOOD COUNT 3.31 x10^6/uL (3.50-5.40); RED CELL DISTRIBUTION WIDTH 14.6 % (11.5-14.5); WHITE BLOOD COUNT 13.3 x10^3/uL (4.0-11.0)
[2018-06-02 07:18] LABS: CALCIUM 7.5 mg/dL (8.5-10.1); CREATININE 1.5 mg/dL (0.6-1.0); GFR 37.2
[2018-06-02 07:22] LABS: VANC TR 19.8 mcg/mL (10.0-20.0)
[2018-06-02] MEDS: VANCOMYCIN 1 GM in IV NORMAL SALINE 250ML 250 ML IV SCH (07:41)
[2018-06-02] MEDS: PANTOPRAZOLE 40 MG TABLET. PO SCH (07:41)
[2018-06-02] MEDS: VANCOMYCIN PER PHARMACY MC PRN (07:52)
[2018-06-02] MEDS: IV NORMAL SALINE 1,000ML 1,000 ML IV SCH ×2 (08:42→17:34)
[2018-06-02] MEDS: busPIRone 5 MG TABLET. PO SCH ×3 (09:45→21:20)
[2018-06-02] MEDS: GLIMEPIRIDE 2 MG TABLET PO SCH (09:45)
[2018-06-02] MEDS: POTASSIUM CHLORIDE 20 MEQ TABLET.ER. PO SCH ×3 (09:45→21:22)
[2018-06-02] MEDS: LACTOBACILLUS RHAMNOSUS GG 1 CAPSULE. PO SCH ×2 (09:46→21:23)
[2018-06-02] MEDS: APIXABAN 5 MG TABLET. PO SCH ×2 (09:46→21:21)
[2018-06-02] MEDS: FLUoxetine HCL 20 MG CAPSULE PO SCH (09:47)
[2018-06-02] MEDS: oxyCODONE/APAP 10/325 1 TAB TABLET PO PRN ×2 (09:54→15:39)
--- NOTE | 2018-06-02 10:57 | PN ---
DATE: 06/02/2018 SUBJECTIVE: The patient is resting, slightly propped up, sleeping comfortably, in no apparent distress. She is off her Levophed since 5 o'clock yesterday afternoon. Her blood pressure remained stable. On questioning her, she denied any complaint. The nursing staff said that she had an uneventful night. PHYSICAL EXAMINATION: GENERAL: When I examined her, she looked well and was clearly in no apparent respiratory distress, slightly pale, but no jaundice, cyanosis, or thyromegaly. No jugular venous distension. No limb edema. VITAL SIGNS: Her heart rate was 60, blood pressure 126/65, temperature was 19.6, respiratory rate was 20, and oxygen saturation was 96% on room air. HEAD, EYES, EARS, NOSE AND THROAT: Showed normocephalic, atraumatic. NECK: Supple. HEART: Showed normal first and second heart sounds. No gallop, rub or murmur. CHEST: Clear to auscultation. No crepitation or rhonchi. ABDOMEN: Distended, soft, nontender. No guarding or rigidity. No organomegaly. All hernial orifice intact. Bowel sounds normal. NEUROLOGIC: She was awake, alert, responding appropriately. All cranial nerves intact. She moves her upper extremities to much good extent than lower extremities. She is mostly bedbound, chair bound. Her intake over the last 24 hours was 3240, output was 4475. LABORATORY DATA: Her lab work this morning showed a white cell count of 13,300, hemoglobin 9.4, hematocrit 29.8, MCV 90 and platelet count 350,000. Her chemistry showed a serum sodium 143, potassium 4, chloride 112, bicarbonate 20, anion gap of 11, BUN 10, creatinine 1.5, estimated GFR was 37 mL per minute, her glucose 150, calcium was 7.5. ASSESSMENT: 1. Sepsis with multiple potential sources including urine, abscess in the left side of the upper lip and severe maxillary sinusitis. 2. Acute on chronic kidney injury. Her creatinine came down from 4.2-1.5. PLAN: To continue with IV fluid. Other medical problems include: 1. Type 2 diabetes mellitus. 2. Hypertension. 3. Hypothyroidism. 4. Chronic obstructive pulmonary disease. 5. Generalized osteoarthritis. 6. Plan is to continue with IV antibiotic, continue with IV steroids, continue with IV fluid. So far, the blood cultures are negative. Her urine culture is still pending at the time of this dictation. JESSIE JOHNSON MD DR: GALINDO/gregory JOB#: [id number] / [id number]
[2018-06-02] MEDS: GABAPENTIN 300 MG CAPSULE. PO SCH (21:20)
[2018-06-02] MEDS: clonazePAM 1 MG TABLET PO SCH (21:22)
[2018-06-02] MEDS: OLANZapine 10 MG TABLET PO SCH (21:23)
[2018-06-03 00:30] VITALS: BP 137/80
[2018-06-03] MEDS: PIPERACILLIN/TAZOBACTAM 2.25 GM in IV NORMAL SALINE 50ML 50 ML IV SCH ×5 (00:53→23:23)
[2018-06-03] MEDS: IV NORMAL SALINE 1,000ML 1,000 ML IV SCH (05:05)
[2018-06-03] MEDS: HYDROCORTISONE SOD SUCC/PF 100 MG/2 ML VIAL. IV SCH ×3 (05:45→21:12)
[2018-06-03] MEDS: LEVOTHYROXINE 100 MCG TABLET PO SCH (05:46)
[2018-06-03] MEDS: clonazePAM 1 MG TABLET PO SCH ×3 (06:17→20:08)
[2018-06-03 06:24] VITALS: BP 171/67
[2018-06-03] MEDS ORDERED: ALBUTEROL SULFATE 8GM INHALER. INH PRN (06:45)
[2018-06-03 07:26] LABS: BASO % 0 % (0-3); EOS % 0 % (0-3); HEMATOCRIT 31.8 % (36.0-47.0); HEMOGLOBIN 9.9 g/dL (12.0-15.5); LYMPH # 2.4 x10^3/uL (1.0-4.8); LYMPH % 14 % (24-48); MEAN CORPUSCULAR HEMOGLOBIN 28 pg (25-35); MEAN CORPUSCULAR HGB CONC 31 g/dL (31-37); MEAN CORPUSCULAR VOLUME 90 fL (79-100); MONO # 1.5 x10^3/uL (0.0-1.1); MONO % 9 % (0-9); NEUT # 13.5 x10^3uL (1.8-7.7); NEUT % 77 % (31-73); PLATELET COUNT 355 x10^3/uL (140-400); RED BLOOD COUNT 3.52 x10^6/uL (3.50-5.40); RED CELL DISTRIBUTION WIDTH 14.8 % (11.5-14.5); WHITE BLOOD COUNT 17.4 x10^3/uL (4.0-11.0)
[2018-06-03 07:39] LABS: CREATININE 1.4 mg/dL (0.6-1.0); GFR 40.3; POTASSIUM 4.2 mmol/L (3.5-5.1)
[2018-06-03] MEDS ORDERED: ALBUTEROL SULFATE 2.5 MG/3 ML NEBU. NEB PRN ×2 (07:45→11:00)
[2018-06-03 08:42] LABS: % LYMPHS 16 % (24-48); % MONOS 7 % (0-10); % SEGS 77 % (35-66); PLT ESTIMATE ADEQUATE (ADEQUATE)
[2018-06-03 08:43] LABS: POLYCHROMASIA SLIGHT; TOXIC GRANULATION PRESENT; TOXIC VACUOLATION PRESENT
[2018-06-03] MEDS: POTASSIUM CHLORIDE 20 MEQ TABLET.ER. PO SCH ×3 (09:00→21:00)
[2018-06-03] MEDS: busPIRone 5 MG TABLET. PO SCH ×3 (09:00→20:08)
[2018-06-03] MEDS: VANCOMYCIN 1 GM in IV NORMAL SALINE 250ML 250 ML IV SCH (10:08)
[2018-06-03 11:36] VITALS: BP 119/73
--- NOTE | 2018-06-03 11:58 | PN ---
DATE: 06/03/2018 SUBJECTIVE: The patient is resting, slightly propped up in bed, sleeping comfortably; however, nursing staff said that she has had recurrent bouts of cough that is exhausting. She does bring up scanty sputum. Apparently, she is on inhalers at home. PHYSICAL EXAMINATION: GENERAL: When I examined her, she looked slightly pale, but no jaundice, cyanosis, or thyromegaly. No jugular venous distension. No limb edema. VITAL SIGNS: Her heart rate was 98, blood pressure was 171/67, temperature was 97.4, respiratory rate was 16, and oxygen saturation was 93% on room air. HEAD, EYES, EARS, NOSE, AND THROAT: Showed normocephalic, atraumatic. The cellulitis on the left side of the upper lip has almost completely resolved. NECK: Supple. HEART: Showed normal first and second heart sounds. No gallop, rub or murmur. CHEST: Shows central trachea, equally reduced expansion, air entry. She has diffuse wheezing bilaterally. I could not appreciate any rhonchi. ABDOMEN: Scaphoid, soft, nontender. NEUROLOGIC: She was sleepy, but arousable. All cranial nerves intact. She moves upper extremities to much good extent than lower extremities. She is mostly bedbound, chair bound. Her intake was 3730, output was 600. LABORATORY DATA: Her lab work this morning showed a white cell count 17,400, hemoglobin 9.9, hematocrit 31.8, MCV 90 and platelet count of 355,000. Her chemistry showed serum sodium of 145, potassium 4.2, chloride 113, bicarbonate was 20, anion gap 12, BUN 9, creatinine 1.4, estimated GFR was 40 mL per minute. Her glucose was 19. Calcium was 8. ASSESSMENT: 1.Sepsis, multiple potential sources including urine. Abscess in the left side of the upper lip and severe maxillary sinusitis. So far, all the cultures are negative. 2.Inlie-pg-zjiwfbg kidney injury, resolved. Her creatinine came down from 4.2-1.4. Other medical problems include: a.Type 2 diabetes mellitus, seems to be well controlled. b.Hypertension. c.Hypothyroidism. d.Chronic obstructive pulmonary disease. e.Generalized osteoarthritis. PLAN: I will discontinue IV fluid. If anything she is hypertensive today. I will discontinue the vancomycin. All her blood cultures are so far negative. In meanwhile, I will continue with the levofloxacin as well as the Zosyn for the time being. I will also continue with steroids and start her on nebulized albuterol and Atrovent. JESSIE JOHNSON MD DR: GALINDO/gregory JOB#: [id number] / [id number]
[2018-06-03] MEDS: IPRATRPIUM/ALBUTEROL 0.5/2.5MG 3 ML NEBU. NEB SCH ×3 (12:12→21:09)
--- NOTE | 2018-06-03 12:31 | RAD ---
Chest radiograph 06/03/2018 11:12 AM INDICATION: Worsening cough and shortness of breath COMPARISON: May 30, 2018 TECHNIQUE: Portable upright frontal view of the chest is provided. FINDINGS: The cardiomediastinal silhouette is within normal limits. There are no pleural effusions. There is no pneumothorax. Patchy density at the left lung base may represent subsegmental atelectasis versus infiltrate. Mild increase in interstitial prominence. Partial osseous fusion of the left posterior ribs. IMPRESSION: Mild increase in interstitial prominence. Increase in patchy density at the left lung base which may represent subsegmental atelectasis versus infiltrates. Electronically signed by: Zahira Fay MD (06/03/2018 12:27 PM) [facility]
[2018-06-03] MEDS: APIXABAN 5 MG TABLET. PO SCH ×2 (12:59→20:08)
[2018-06-03] MEDS: GLIMEPIRIDE 2 MG TABLET PO SCH (12:59)
[2018-06-03] MEDS: PANTOPRAZOLE 40 MG TABLET. PO SCH (13:00)
[2018-06-03] MEDS: LACTOBACILLUS RHAMNOSUS GG 1 CAPSULE. PO SCH ×2 (13:00→21:00)
[2018-06-03] MEDS: FLUoxetine HCL 20 MG CAPSULE PO SCH (13:00)
[2018-06-03] MEDS: oxyCODONE/APAP 10/325 1 TAB TABLET PO PRN ×2 (13:42→20:25)
[2018-06-03 15:54] VITALS: BP 109/65
[2018-06-03 19:31] VITALS: BP 92/57
[2018-06-03] MEDS: GABAPENTIN 300 MG CAPSULE. PO SCH (20:07)
[2018-06-03] MEDS: OLANZapine 10 MG TABLET PO SCH (20:08)
[2018-06-03 23:43] VITALS: BP 101/60
[2018-06-04] MEDS: HYDROCORTISONE SOD SUCC/PF 100 MG/2 ML VIAL. IV SCH (05:45)
[2018-06-04] MEDS: LEVOTHYROXINE 100 MCG TABLET PO SCH (05:45)
[2018-06-04] MEDS: PIPERACILLIN/TAZOBACTAM 2.25 GM in IV NORMAL SALINE 50ML 50 ML IV SCH (05:45)
[2018-06-04] MEDS: IPRATRPIUM/ALBUTEROL 0.5/2.5MG 3 ML NEBU. NEB SCH ×2 (05:57→10:33)
[2018-06-04 05:58] VITALS: BP 116/69
[2018-06-04 06:46] LABS: VANC TR 15.3 mcg/mL (10.0-20.0)
--- NOTE | 2018-06-04 07:47 | RAD ---
EXAM: AP View of the chest DATE: 05/30/2018 7:40 PM INDICATION: Chest pain COMPARISON: 04/06/2017 FINDINGS: The heart is not enlarged. Mediastinal and hilar contours are normal. No focal parenchymal airspace opacity. No pleural effusion or pneumothorax. Multiple old left rib fractures are seen. 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 Cholecystectomy clips are seen. IMPRESSION: 1. No evidence for acute cardiopulmonary process. 2. Chronic osseous changes including right midshaft fracture nonunion are stable. Electronically signed by: Alexey Keenan MD (06/04/2018 7:43 AM) [facility]
[2018-06-04] MEDS: FLUoxetine HCL 20 MG CAPSULE PO SCH (08:13)
[2018-06-04] MEDS: GLIMEPIRIDE 2 MG TABLET PO SCH (08:14)
[2018-06-04] MEDS: APIXABAN 5 MG TABLET. PO SCH (08:14)
[2018-06-04] MEDS: busPIRone 5 MG TABLET. PO SCH (08:14)
[2018-06-04] MEDS: PANTOPRAZOLE 40 MG TABLET. PO SCH (08:15)
[2018-06-04] MEDS: LACTOBACILLUS RHAMNOSUS GG 1 CAPSULE. PO SCH (08:15)
[2018-06-04] MEDS: clonazePAM 1 MG TABLET PO SCH (08:15)
[2018-06-04] MEDS: POTASSIUM CHLORIDE 20 MEQ TABLET.ER. PO SCH (08:21)
[2018-06-04] MEDS ORDERED: CALCIUM CARBONATE 500 MG TAB.CHEW PO PRN (09:30)
[2018-06-04] MEDS ORDERED: AMOX1TAB61 PO (10:09)
--- NOTE | 2018-06-04 11:54 | DS ---
DATE OF DISCHARGE: 06/04/2018 HOSPITAL COURSE: The patient is a 47-year-old female patient, who was originally admitted with sore throat and generalized weakness. In the Emergency Room, she was found to have marked leukocytosis, hypotension, lactic acidosis. Lactic acidosis was slightly elevated, but she has also acute kidney injury. Her creatinine is 4.2. The patient was treated aggressively with IV fluid and IV antibiotic in the form of Zosyn and vancomycin. She did have a furuncle on her left-sided upper lip. Soft tissue of the neck and head showed that she has also left maxillary sinusitis. She continued to be hypotensive and required vasopressors while she is in the ICU. We did start her also on stress dose of steroids that she has been on steroids on a daily basis and she did actually very well. The furuncle has completely disappeared. Her blood and urine cultures so far are negative. Her urine showed more than 100,000 colony forming units per mL of mixed urogenital danilo. She basically remained hemodynamically stable, afebrile, and her kidney function has returned back to her baseline. A decision was made to discharge her home to finish the course treatment in the form of Augmentin 875 mg twice a day for 7 more days. PHYSICAL EXAMINATION: GENERAL: When I saw her today, she looked well and was clearly in no apparent respiratory distress. She was sitting on the edge of the bed, slightly pale, but no jaundice, cyanosis, or thyromegaly. No jugular venous distension. No limb edema. VITAL SIGNS: Her heart rate was 74, blood pressure was 116/69, temperature was 98, respiratory rate was 18 and oxygen saturation was 95%. HEAD, EYES, EARS, NOSE AND THROAT: Normocephalic, atraumatic. NECK: Supple. HEART: Showed normal first and second heart sounds with no gallop, rub or murmur. CHEST: Clear to auscultation. No crepitation or rhonchi. ABDOMEN: Distended, soft, nontender. NEUROLOGIC: She is awake, alert, responding appropriately. All cranial nerves intact. She moves upper extremities to much good extent than lower extremities. She is mostly bedbound, chair bound. Her intake over the last 24 hours was 1100, no output was recorded. LABORATORY DATA: Her most recent lab work showed serum sodium of 145, potassium 4.2, chloride 112, bicarbonate 20, anion gap of 12, BUN 9, creatinine 1.4, estimated GFR was 40 mL per minute. Her glucose 119 and calcium was 8. Her white cell count 17,000, hemoglobin was 9.9, hematocrit 31, MCV 90 and platelet count 355,000. Her toxic screen showed that the vancomycin trough level was 15. Urinalysis was unremarkable. Influenza A and B were negative. She was positive for MRSA by PCR in her nostrils. DISCHARGE MEDICATIONS: She was discharged home to continue with Augmentin 875 mg 1 tablet twice a day for 7 days, albuterol sulfate 2 puffs every 6 hours, apixaban 5 mg twice a day, buspirone 7.5 mg 3 times a day, butalbital, acetaminophen and caffeine one tablet every 4-6 hours for headache; clonazepam 1 mg 3 times a day, cyclobenzaprine 10 mg 3 times a day, Lunesta 3 mg at bedtime, fluoxetine 60 mg daily, gabapentin she has actually 600 mg 3 times a day, glimepiride 2 mg daily, DuoNeb 4 times a day, levothyroxine sodium 125 mcg once a day, Lidoderm patch 1 patch topically as needed, losartan potassium 50 mg once a day, Nicoderm patch 14 mg topically daily. She is on nystatin suspension swish and swallow 4 times a day, olanzapine 20 mg p.o. daily, olanzapine/fluoxetine or Symbyax 10/50 mg p.o. at bedtime, ondansetron 4 mg every 6 hours, oxycodone/acetaminophen 10/325 one tablet 4 times a day, Protonix 40 mg once a day, potassium chloride 10 mEq 3 times a day, potassium chloride 40 mEq 3 times a day, prednisone 5 mg daily. ASSESSMENT: 1. Sepsis, multifactorial, resolved. The furuncle in the left upper lip has completely resolved. 2. Rhvfn-uf-phkptel kidney injury, resolved. Her creatinine came down from 4.2-1.4. 3. The patient has multiple other medical problems including type 2 diabetes mellitus, seems to be well controlled on glimepiride 2 mg once a day. 4. Hypertension, well controlled. 5. Chronic obstructive pulmonary disease. JESSIE JOHNSON MD DR: GALINDO/gregory JOB#: [id number] / [id number]
[2018-06-04] MEDS ORDERED: PIPERACILLIN/TAZOBACTAM 4.5 GM in IV NORMAL SALINE 50ML 50 ML IV SCH (12:00)
== END 2018-06-04 11:05 | disposition home or self-care (01) | DRG 871 ==
LOC: ER 20:05 → ICU 23:01 → 1 SOUTH 06-02 11:38
PROVIDERS: ADMIT Internal Medicine; ATTEND Internal Medicine
DX: A41.9 Sepsis, unspecified organism (principal); N17.0 Acute kidney failure with tubular necrosis; N39.0 Urinary tract infection, site not specified; R65.20 Severe sepsis without septic shock; E11.22 Type 2 diabetes mellitus with diabetic chronic kidney disease; E89.0 Postprocedural hypothyroidism; F17.210 Nicotine dependence, cigarettes, uncomplicated; F31.9 Bipolar disorder, unspecified; I12.9 Hypertensive chronic kidney disease with stage 1 through stage 4 chronic kidney disease, or unspecified chronic kidney disease; J44.9 Chronic obstructive pulmonary disease, unspecified; J32.0 Chronic maxillary sinusitis; K13.0 Diseases of lips; F41.9 Anxiety disorder, unspecified; L02.02 Furuncle of face; L02.93 Carbuncle, unspecified; M15.9 Polyosteoarthritis, unspecified; N18.9 Chronic kidney disease, unspecified; Z79.01 Long term (current) use of anticoagulants; Z79.84 Long term (current) use of oral hypoglycemic drugs; Z82.49 Family history of ischemic heart disease and other diseases of the circulatory system; Z86.718 Personal history of other venous thrombosis and embolism; Z90.49 Acquired absence of other specified parts of digestive tract; Z90.710 Acquired absence of both cervix and uterus; Z83.3 Family history of diabetes mellitus
CPT/HCPCS: 36415; 70490; 71045; 74176; 80048; 80053; 80202; 81001; 82947; 83605; 84484; 85007; 85025; 85027; 87040; 87070; 87086; 87205; 87641; 87804; 90471; 90756; 93005; 94640; 96361; 96365; 96367; 96375; J1200; J1650; J1956; J2405; J2543; J3370; J7040; J7050; J7620; 99291-25; J7030; Q2035

== ENCOUNTER 2018-06-06 23:04 | Emergency (ER) | payer MEDICARE, OTHER ==
[~2018-06-06] VITALS: Ht 160 cm; Wt 70.0 kg
[~2018-06-06 23:04] MED LIST changes: +ALBU2.5V8 IH; -ALBU8.5H8 IH; +AMOX1TAB61 PO; +APIX5TAB3 PO; +BUSP7.5T IV; +FLUO20CA8 PO; +GABA300C8 PO; +GLIM2TAB2 PO; +LEVO100T5 PO; +LIDO35.4 TP; +LOSA50TA14 PO; +OLAN20TA7 PO; +PANT20TA3 PO
[2018-06-06] MEDS ORDERED: CONTRAST GIVEN MC PRN (23:45)
[2018-06-07] MEDS ORDERED: IOHEXOL 300 MG/ML 75 ML VIAL. IV ONE
[2018-06-07] MEDS ORDERED: IV NORMAL SALINE 1,000ML 1,000 ML IV ONE
[2018-06-07 00:15] LABS: BASO # 0.1 x10^3/uL (0.0-0.2); BASO % 0 % (0-3); EOS # 0.6 x10^3/uL (0.0-0.7); EOS % 4 % (0-3); HEMATOCRIT 29.5 % (36.0-47.0); HEMOGLOBIN 9.6 g/dL (12.0-15.5); LYMPH # 4.3 x10^3/uL (1.0-4.8); LYMPH % 26 % (24-48); MEAN CORPUSCULAR HEMOGLOBIN 29 pg (25-35); MEAN CORPUSCULAR HGB CONC 33 g/dL (31-37); MEAN CORPUSCULAR VOLUME 88 fL (79-100); MONO # 1.7 x10^3/uL (0.0-1.1); MONO % 10 % (0-9); NEUT # 9.9 x10^3uL (1.8-7.7); NEUT % 60 % (31-73); PLATELET COUNT 341 x10^3/uL (140-400); RED BLOOD COUNT 3.33 x10^6/uL (3.50-5.40); RED CELL DISTRIBUTION WIDTH 14.5 % (11.5-14.5); WHITE BLOOD COUNT 16.5 x10^3/uL (4.0-11.0)
[2018-06-07 00:27] LABS: ALBUMIN 2.3 g/dL (3.4-5.0); ALBUMIN/GLOBULIN RATIO 0.6 (1.0-1.7); CALCIUM 7.7 mg/dL (8.5-10.1); CREATININE 1.3 mg/dL (0.6-1.0); GFR 43.9; POTASSIUM 3.4 mmol/L (3.5-5.1); TOTAL BILIRUBIN 0.3 mg/dL (0.2-1.0)
[2018-06-07] MEDS ORDERED: MORPHINE SULFATE 4 MG/ML DISP.SYRIN. IV ONE (00:30)
[2018-06-07 00:32] LABS: % BANDS 3 % (0-9); % EOS 2 % (0-5); % LYMPHS 24 % (24-48); % MONOS 4 % (0-10); % SEGS 67 % (35-66)
[2018-06-07 00:33] LABS: PLT ESTIMATE ADEQUATE (ADEQUATE)
--- NOTE | 2018-06-07 01:05 | RAD ---
PQRS Compliance Statement: One or more of the following individualized dose reduction techniques were utilized for this examination: 1. Automated exposure control 2. Adjustment of the mA and/or kV according to patient size 3. Use of iterative reconstruction technique CT ABD PELV W/ IV CONTRST ONLY Clinical Indication: Abdomen pain with nausea, fall yesterday. Hx: Appendectomy, cholecystectomy, partial colectomy, spleenectomy, hysterectomy, parapalegic Comparison: CT abdomen and pelvis without contrast May 30, 2018. Technique: Helical CT imaging of the abdomen and pelvis is performed after 60 cc of Omnipaque 300 IV contrast. Oral contrast not given. Findings: Small right pleural effusion and mild consolidation with air bronchograms in the posterior right lower lobe. Trace left pleural effusion and mild left lower lobe atelectasis. There is trace pericardial effusion. Cardiac size normal. Cholecystectomy. Splenectomy. The liver, pancreas, adrenal glands, and abdominal aorta are normal. No hydronephrosis. Small right renal cyst. Stomach unremarkable. No dilated small bowel. There is enterocolic anastomosis. There is no convincing colon wall thickening. Urinary bladder is normal. Hysterectomy. Left ovary unremarkable. No pelvic free fluid. Malleable plates and heterotopic ossification of the left hemipelvis are stable. Deformity of left posterior ribs is stable. IMPRESSION: 1. Small right pleural effusion and mild posterior right lower lobe consolidation with air bronchograms. Considerations include bronchopneumonia, aspiration, or atelectasis. 2. No acute abdominal or pelvic abnormality. Electronically signed by: Isacc Quiroz MD (06/07/2018 1:01 AM) [facility]
--- NOTE | 2018-06-07 01:26 | PHYS DOC ---
Adult General Chief Complaint Chief Complaint Abdominal pain HPI HPI This is a 47 years old female with multiple medical problem presented emergency department with left lower quadrant abdominal pain S issue with ecchymosis on the skin, Denies any other symptoms .pain started yesterday Review of Systems Review of Systems Constitutional: Denies fever or chills [] Eyes: Denies change in visual acuity, redness, or eye pain [] HENT: Denies nasal congestion or sore throat [] Respiratory: Denies cough or shortness of breath [] Cardiovascular: No additional information not addressed in HPI [] GI: Denies, vomiting, bloody stools or diarrhea [] : Denies dysuria or hematuria [] Musculoskeletal: Denies back pain or joint pain [] Integument: Denies rash or skin lesions [] Neurologic: Denies headache, focal weakness or sensory changes [] Endocrine: Denies polyuria or polydipsia [] All other systems were reviewed and found to be within normal limits, except as documented in this note. Current Medications Current Medications Current Medications Medications (Trade) Dose Ordered Sig/Papito Start Time Stop Time Status Last Admin Dose Admin Info (Do NOT chart on this entry -- for MONITORING) 1 each PRN DAILY PRN 06/06/18 23:45 06/08/18 23:44 Iohexol (Omnipaque 300 Mg/ml) 60 ml 1X ONCE 06/07/18 00:00 06/07/18 00:02 DC 06/07/18 00:00 60 ML Levofloxacin/ Dextrose 150 ml @ 150 mls/hr 1X ONCE 06/07/18 01:30 06/07/18 02:29 Morphine Sulfate (Morphine 4mg Syringe) 4 mg 1X ONCE 06/07/18 00:30 06/07/18 00:31 DC 06/07/18 00:32 4 MG Sodium Chloride 1,000 ml @ 1,000 mls/hr 1X ONCE 06/07/18 00:00 06/07/18 00:59 DC 06/07/18 00:31 1,000 MLS/HR Allergies Allergies Allergies Coded Allergies Type Severity Reaction Last Updated Verified ceftazidime Allergy Severe Hives 04/05/15 Yes Sulfa (Sulfonamide Antibiotics) Allergy Intermediate Nausea 08/07/14 Yes carbamazepine Allergy Intermediate 05/05/15 Yes cefuroxime axetil Allergy Intermediate NOSE BLEED 08/07/14 Yes chlorpromazine HCl Allergy Intermediate Rash 08/07/14 Yes divalproex sodium Allergy Intermediate Rash 08/07/14 Yes doxepin Allergy Intermediate Rash 08/07/14 Yes lamotrigine Allergy Intermediate double vision, rash 05/05/15 Yes lithium Allergy Intermediate Rash 08/07/14 Yes nalbuphine Allergy Intermediate MORPHINE OK 05/05/15 Yes tetracycline Allergy Intermediate Rash 08/07/14 Yes vancomycin Allergy Intermediate Itching 08/07/14 Yes I S O L A T I O N *CONTACT* Allergy Unknown 06/01/18 Yes NSAIDS (Non-Steroidal Anti-Inflamma Adverse Reaction Mild upset stomach Yes Physical Exam Physical Exam Constitutional: Well developed, well nourished, no acute distress, non-toxic appearance. [] HENT: Normocephalic, atraumatic, bilateral external ears normal, oropharynx moist, no oral exudates, nose normal. [] Eyes: PERRLA, EOMI, conjunctiva normal, no discharge. [] Neck: Normal range of motion, no tenderness, supple, no stridor. [] Cardiovascular:Heart rate regular rhythm, no murmur [] Lungs & Thorax: Bilateral breath sounds clear to auscultation [] Abdomen: Bowel sounds normal, soft, no tenderness, no masses, no pulsatile masses. [] Skin: Warm, dry, no erythema, no rash. [] Back: No tenderness, no CVA tenderness. [] Extremities: No tenderness, no cyanosis, no clubbing, ROM intact, no edema. [] Neurologic: Alert and oriented X 3, normal motor function, normal sensory function, no focal deficits noted. [] Psychologic: Affect normal, judgement normal, mood normal. [] Current Patient Data Vital Signs Vital Signs Date Time Temp Pulse Resp B/P (MAP) Pulse Ox O2 Delivery O2 Flow Rate FiO2 06/07/18 00:32 18 98 Room Air 06/06/18 23:05 98.4 101 Lab Results Laboratory Tests Test 06/06/18 23:55 White Blood Count 16.5 x10^3/uL (4.0-11.0) H Red Blood Count 3.33 x10^6/uL (3.50-5.40) L Hemoglobin 9.6 g/dL (12.0-15.5) L Hematocrit 29.5 % (36.0-47.0) L Mean Corpuscular Volume 88 fL (79-100) Mean Corpuscular Hemoglobin 29 pg (25-35) Mean Corpuscular Hemoglobin Concent 33 g/dL (31-37) Red Cell Distribution Width 14.5 % (11.5-14.5) Platelet Count 341 x10^3/uL (140-400) Neutrophils (%) (Auto) 60 % (31-73) Lymphocytes (%) (Auto) 26 % (24-48) Monocytes (%) (Auto) 10 % (0-9) H Eosinophils (%) (Auto) 4 % (0-3) H Basophils (%) (Auto) 0 % (0-3) Neutrophils # (Auto) 9.9 x10^3uL (1.8-7.7) H Lymphocytes # (Auto) 4.3 x10^3/uL (1.0-4.8) Monocytes # (Auto) 1.7 x10^3/uL (0.0-1.1) H Eosinophils # (Auto) 0.6 x10^3/uL (0.0-0.7) Basophils # (Auto) 0.1 x10^3/uL (0.0-0.2) Segmented Neutrophils % 67 % (35-66) H Band Neutrophils % 3 % (0-9) Lymphocytes % 24 % (24-48) Monocytes % 4 % (0-10) Eosinophils % 2 % (0-5) Platelet Estimate Adequate (ADEQUATE) PTT 32 SEC (23-33) Sodium Level 143 mmol/L (136-145) Potassium Level 3.4 mmol/L (3.5-5.1) L Chloride Level 107 mmol/L (98-107) Carbon Dioxide Level 26 mmol/L (21-32) Anion Gap 10 (6-14) Blood Urea Nitrogen 9 mg/dL (7-20) Creatinine 1.3 mg/dL (0.6-1.0) H Estimated GFR (Cockcroft-Gault) 43.9 BUN/Creatinine Ratio 7 (6-20) Glucose Level 153 mg/dL (70-99) H Calcium Level 7.7 mg/dL (8.5-10.1) L Total Bilirubin 0.3 mg/dL (0.2-1.0) Aspartate Amino Transferase (AST) 11 U/L (15-37) L Alanine Aminotransferase (ALT) 15 U/L (14-59) Alkaline Phosphatase 87 U/L (46-116) Total Protein 6.0 g/dL (6.4-8.2) L Albumin 2.3 g/dL (3.4-5.0) L Albumin/Globulin Ratio 0.6 (1.0-1.7) L Lipase 83 U/L (73-393) EKG EKG [] Radiology/Procedures Radiology/Procedures []PRESSION: 1. Small right pleural effusion and mild posterior right lower lobe consolidation with air bronchograms. Considerations include bronchopneumonia, aspiration, or atelectasis. 2. No acute abdominal or pelvic abnormality. Course & Med Decision Making Course & Med Decision Making Pertinent Labs and Imaging studies reviewed. (See chart for details) [] Final Impression Final Impression [] Problems: (1) PNEUMONIA, UNSPECIFIED ORGANISM Dragon Disclaimer Dragon Disclaimer This electronic medical record was generated, in whole or in part, using a voice recognition dictation system. MARIAELENA YANEZ MD Jun 07, 2018 01:26
[2018-06-07] MEDS ORDERED: LEVO500T59 PO (01:27)
[2018-06-07 02:16] VITALS: BP 96/64
== END 2018-06-07 02:40 | disposition home or self-care (01) ==
LOC: ER 23:04
DX: J18.9 Pneumonia, unspecified organism (principal); T14.8XXA Other injury of unspecified body region, initial encounter; J90 Pleural effusion, not elsewhere classified; Z88.2 Allergy status to sulfonamides; Z91.041 Radiographic dye allergy status; Z88.6 Allergy status to analgesic agent; Z88.1 Allergy status to other antibiotic agents; Z88.8 Allergy status to other drugs, medicaments and biological substances; W18.30XA Fall on same level, unspecified, initial encounter; Y93.89 Activity, other specified; Y92.89 Other specified places as the place of occurrence of the external cause; Y99.8 Other external cause status
CPT/HCPCS: 36415; 74177; 80053; 83690; 85007; 85025; 85730; 96365; 96375; 99284; J1956; J2270; Q9967; J7030

== ENCOUNTER 2018-06-11 13:15 | Emergency (ER) | payer MEDICARE, OTHER ==
[~2018-06-11] VITALS: Ht 160 cm; Wt 66.2 kg
[~2018-06-11 13:15] MED LIST changes: +LEVO500T59 PO
--- NOTE | 2018-06-11 14:01 | PHYS DOC ---
Past History Past Medical History: Anxiety, Bipolar, Depression Past Surgical History: Appendectomy, Cholecystectomy, Hysterectomy, Spleenectomy, Other Smoking: Cigarettes, Greater than 1 pack/day Alcohol Use: None Drug Use: None Adult General Chief Complaint Chief Complaint: MECHANICAL FALL HPI HPI Patient is 47-year-old female who presents with complaint of left shoulder and wrist pain after falling on Monday. She states that initially it didn't hurt very much but over the last 24 hours she has had an increase in pain in the shoulder and states that she has a difficult time moving her shoulder as well as her wrist. She rates pain at a 7 out of 10. She denies any other injuries. Review of Systems Review of Systems Constitutional: Denies fever or chills [] Respiratory: Denies cough or shortness of breath [] Cardiovascular: No additional information not addressed in HPI [] Musculoskeletal: Complains of left shoulder and wrist pain [] Allergies Allergies Allergies Coded Allergies Type Severity Reaction Last Updated Verified ceftazidime Allergy Severe Hives 04/05/15 Yes Sulfa (Sulfonamide Antibiotics) Allergy Intermediate Nausea 08/07/14 Yes carbamazepine Allergy Intermediate 05/05/15 Yes cefuroxime axetil Allergy Intermediate NOSE BLEED 08/07/14 Yes chlorpromazine HCl Allergy Intermediate Rash 08/07/14 Yes divalproex sodium Allergy Intermediate Rash 08/07/14 Yes doxepin Allergy Intermediate Rash 08/07/14 Yes lamotrigine Allergy Intermediate double vision, rash 05/05/15 Yes lithium Allergy Intermediate Rash 08/07/14 Yes nalbuphine Allergy Intermediate MORPHINE OK 05/05/15 Yes tetracycline Allergy Intermediate Rash 08/07/14 Yes vancomycin Allergy Intermediate Itching 08/07/14 Yes I S O L A T I O N *CONTACT* Allergy Unknown 06/01/18 Yes NSAIDS (Non-Steroidal Anti-Inflamma Adverse Reaction Mild upset stomach Yes Physical Exam Physical Exam Constitutional: Well developed, well nourished, no acute distress, non-toxic appearance. [] Cardiovascular: Regular rate and rhythm, no murmur [] Lungs & Thorax: Bilateral breath sounds clear to auscultation [] Extremities: Left shoulder demonstrates tenderness to palpation diffusely with decreased range of motion due to pain. Left wrist demonstrates diffuse tenderness to palpation without soft tissue swelling or other signs of trauma. Range of motion is decreased due to reported pain. [] Neurologic: Alert and oriented X 3, no focal deficits noted. [] Current Patient Data Vital Signs Vital Signs Date Time Temp Pulse Resp B/P (MAP) Pulse Ox O2 Delivery O2 Flow Rate FiO2 06/11/18 13:39 98.7 105 22 97 Room Air EKG EKG [] Radiology/Procedures Radiology/Procedures [] Impressions: X-ray of the left shoulder and wrist demonstrates no acute bony abnormalities. Course & Med Decision Making Course & Med Decision Making Pertinent Labs and Imaging studies reviewed. (See chart for details) [] Dragon Disclaimer Dragon Disclaimer This electronic medical record was generated, in whole or in part, using a voice recognition dictation system. Departure Departure: Impression: Primary Impression: Sprain of left shoulder Additional Impression: Left wrist sprain Disposition: HOME, SELF-CARE Condition: STABLE Referrals: LUCILLE ZAYAS (PCP) Patient Instructions: Shoulder Sprain, Wrist Pain Scripts Tramadol Hcl (TRAMADOL HCL) 50 Mg Tablet 50 MG PO PRN Q6HRS PRN for PAIN, #10 TAB Prov: LORI IBANEZ Jr. DO 06/11/18 Problem Qualifiers Primary Impression: Sprain of left shoulder Encounter type: initial encounter Shoulder sprain type: unspecified sprain Qualified Codes: S43.402A - Unspecified sprain of left shoulder joint, initial encounter Additional Impression: Left wrist sprain Encounter type: initial encounter Qualified Codes: S63.502A - Unspecified sprain of left wrist, initial encounter LORI IBANEZ Jr. DO Jun 11, 2018 14:01
--- NOTE | 2018-06-11 14:20 | RAD ---
WRIST 3V LEFT History: PAIN IN WRIST FROM FALL. Comparison: None are available No evidence of acute fracture. No bone destruction. Ulna plus variance is noted. No evidence of dislocation. Soft tissue planes appear intact. Mild degenerative changes at first carpometacarpal joint. IMPRESSION: No evidence of acute fracture or dislocation. Electronically signed by: Martin Kilpatrick MD (06/11/2018 2:16 PM) [facility]
--- NOTE | 2018-06-11 14:20 | RAD ---
SHOULDER 2+V LEFT Clinical Indication: FALL, PAIN IN SHOULDER Comparison: Left shoulder, 3 views November 02, 2015. Findings: No acute fracture or dislocation. Mild degenerative arthropathy. There is old healed angulated fracture of the mid humeral diaphysis. There are old left rib fractures. The left upper lung is clear. The mineralization is normal. IMPRESSION: No acute fracture or dislocation. Electronically signed by: Isacc Quiroz MD (06/11/2018 2:16 PM) [id number]
[2018-06-11] MEDS ORDERED: TRAM50TA PO (14:32)
[2018-06-11] MEDS: traMADol 50 MG TABLET PO ONE (14:41)
[2018-06-11 14:50] VITALS: BP 113/79
== END 2018-06-11 14:50 | disposition home or self-care (01) ==
LOC: ER 13:15
DX: S43.402A Unspecified sprain of left shoulder joint, initial encounter (principal); S63.502A Unspecified sprain of left wrist, initial encounter; F41.9 Anxiety disorder, unspecified; F31.9 Bipolar disorder, unspecified; F17.210 Nicotine dependence, cigarettes, uncomplicated; Z88.2 Allergy status to sulfonamides; Z91.041 Radiographic dye allergy status; Z88.6 Allergy status to analgesic agent; Z88.1 Allergy status to other antibiotic agents; Z88.8 Allergy status to other drugs, medicaments and biological substances; W18.30XA Fall on same level, unspecified, initial encounter; Y93.89 Activity, other specified; Y92.89 Other specified places as the place of occurrence of the external cause; Y99.8 Other external cause status
CPT/HCPCS: 73030; 73110; 99283

== ENCOUNTER → 2018-08-08 | Outpatient (CLI) | payer MEDICARE, OTHER ==
[~2018-08-08] MED LIST changes: +TRAM50TA PO
--- NOTE | 2018-08-08 17:09 | RAD ---
Three view cervical spine radiographs 08/08/2018 CLINICAL HISTORY: Neck pain which radiates down the left arm. AP, lateral and two odontoid digital radiographs of the cervical spine were obtained. There is mild straightening of the normal cervical lordosis. Degenerative changes consisting of vertebral endplate sclerosis and mild to moderate anterior vertebral body osteophyte formation are seen throughout the mid and lower cervical disc spaces. Degenerative changes are seen involving the uncovertebral and facet joints throughout the mid and lower cervical spine. No fracture or subluxation of the cervical vertebrae is seen. No prevertebral soft tissue swelling is seen. The patient is edentulous. IMPRESSION: Degenerative changes are seen involving the cervical spine as outlined above. No acute osseous abnormality is seen. Electronically signed by: Corbin Angulo MD (08/08/2018 5:06 PM) [facility]
== END | disposition home or self-care (01) ==
LOC: RAD 16:23
PROVIDERS: ATTEND Physician Assistant
DX: M47.812 Spondylosis without myelopathy or radiculopathy, cervical region (principal); M25.78 Osteophyte, vertebrae
CPT/HCPCS: 72040

== ENCOUNTER → 2018-09-18 | Outpatient (CLI) | payer MEDICARE, OTHER ==
[~2018-09-18] MED LIST changes: +CLIN150C14 PO; +PROC10TA57 PO
--- NOTE | 2018-09-18 13:36 | RAD ---
EXAM: Lumbar spine, 5 views. HISTORY: Pain. Fall. COMPARISON: None. FINDINGS: 5 views lumbar spine are obtained. There is S-shaped thoracolumbar scoliosis, with levocurvature centered at the lower thoracic levels and dextrocurvature centered at the L3 level. There is no significant listhesis. There is degenerative endplate remodeling with disc space narrowing, facet arthropathy and vacuum phenomenon at L5-S1. There is also disc space narrowing at L4-L5. There is internal fixation of a healed left acetabular fracture. There are cholecystectomy clips. IMPRESSION: 1. Multilevel degenerative change throughout the lumbar spine, primarily at the lumbosacral junction. 2. S-shaped thoracolumbar scoliosis. 3. Internal fixation of a left acetabular fracture, partially included on the [id number]. 4. No acute osseous finding. Electronically signed by: April Schmid MD (09/18/2018 1:33 PM) [facility]
--- NOTE | 2018-09-18 16:33 | RAD ---
Right clavicle, 2 views, 09/18/2018: HISTORY: Pain Comparison is made to a study from 07/25/2017. There is extensive deformity of the medial and mid aspects of the right clavicle with bony overgrowth and spurring. This was fully described on the 07/25/2017 exam and correlated with a 04/06/2017 CT study. There is bony fusion of the sternoclavicular articulation as well as the coracoclavicular articulation. 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 These findings are unchanged. No new abnormality is detected. There is also extensive deformity involving the visualized aspect of the proximal right humeral shaft compatible with old trauma. Old screw tracks are evident in the humerus. IMPRESSION: Extensive posttraumatic right clavicular deformity as described above. Electronically signed by: Phillip Rodgers MD (09/18/2018 4:30 PM) [facility]
--- NOTE | 2018-09-18 16:39 | RAD ---
EXAM: AP pelvis, AP and lateral views the right hip DATE: 09/18/2018 12:00 AM INDICATION: RIGHT HIP 2 VIEW WITH PELVIS FOR PAIN COMPARISON: 01/22/2017. FINDINGS: Screw plate fixation of the left acetabulum is again seen. Associated marked heterotopic ossification of the left hip may be bridging, unchanged to 01/22/2017. Right hip joint is preserved without significant proliferative change. No evidence of acute fracture or dislocation. Lumbar spine degenerative changes are partially profiled. IMPRESSION: No evidence of acute fracture or dislocation. Right hip joint space is preserved without significant degenerative/atrophic change. 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 Electronically signed by: Alexey Keenan MD (09/18/2018 4:36 PM) [id number]
== END | disposition home or self-care (01) ==
LOC: RAD 11:40
PROVIDERS: ATTEND Physician Assistant
DX: M48.07 Spinal stenosis, lumbosacral region (principal); M48.061 Spinal stenosis, lumbar region without neurogenic claudication; M41.85 Other forms of scoliosis, thoracolumbar region; M12.88 Other specific arthropathies, not elsewhere classified, other specified site; M95.8 Other specified acquired deformities of musculoskeletal system
CPT/HCPCS: 72110; 73000; 73502

== ENCOUNTER 2018-11-24 12:35 | Emergency (ER) | payer MEDICARE, OTHER ==
[~2018-11-24] VITALS: Ht 160 cm; Wt 70.0 kg
[~2018-11-24 12:35] MED LIST changes: -CLIN150C14 PO; +OLAN20TA15 PO; -OLAN20TA7 PO; -PROC10TA57 PO
[2018-11-24] MEDS ORDERED: IV NORMAL SALINE 1,000ML 1,000 ML IV SCH (13:03)
--- NOTE | 2018-11-24 13:15 | PHYS DOC ---
Past History Past Medical History: Anxiety, Bipolar, COPD, Depression, Migraines, Pneumonia Past Surgical History: Appendectomy, Cholecystectomy, Hysterectomy, Spleenectomy, Other Smoking: Cigarettes, Greater than 1 pack/day Alcohol Use: None Drug Use: Marijuana Adult General Chief Complaint Chief Complaint: MULTIPLE COMPLAINTS HPI HPI Patient is a 48-year-old female presents complaining of several complaints #1. Headache, this is been present for the past several days, generalized, like her usual migraines. There is some photophobia. Some nausea and vomiting. No relief with the Zofran. Only acetaminophen is been taken for pain management. No NSAIDs given that she is on our request for previous DVT. #2. Shortness of breath. This only happens when she is having nausea and vomiting. She reports no improvement with her inhaler. She does have a history of COPD. She also has a history of previous DVT as noted above. Symptoms are mild and she feels like she is at her usual baseline currently. #3. Skin infection. She has a bug bite that she is concerned his gotten infected on her right leg. She does have a history of MRSA. She is out of her mupirocin. Symptoms are mild. No drainage from the leg wound. Nothing makes the symptoms better or worse. #4. Right shoulder pain. No trauma. She is wheelchair-bound at baseline, and normally has some right shoulder discomfort however this is worse than usual. Increased pain with movement. [] Review of Systems Review of Systems Constitutional: Denies fever or chills [] Eyes: Denies change in visual acuity, redness, or eye pain [] HENT: Denies nasal congestion or sore throat [] Respiratory: See history of present illness[] Cardiovascular: No chest pain or palpitations[] GI: Denies abdominal pain, nausea, vomiting, bloody stools or diarrhea [] : Denies dysuria or hematuria [] Musculoskeletal: Denies back pain on see history of present illness[] Integument: See history of present illness[] Neurologic: Denies focal weakness or sensory changes [] Endocrine: Denies polyuria or polydipsia [] All other systems were reviewed and found to be within normal limits, except as documented in this note. Current Medications Current Medications Current Medications Medications (Trade) Dose Ordered Sig/Papito Start Time Stop Time Status Last Admin Dose Admin Albuterol/ Ipratropium (Duoneb) 3 ml 1X ONCE 11/24/18 13:15 11/24/18 13:16 UNV Diphenhydramine HCl (Benadryl) 50 mg 1X ONCE 11/24/18 13:15 11/24/18 13:16 UNV Metoclopramide HCl (Reglan Vial) 10 mg 1X ONCE 11/24/18 13:15 11/24/18 13:16 UNV Sodium Chloride 1,000 ml @ 1,000 mls/hr Q1H 11/24/18 13:03 11/24/18 14:02 UNV Allergies Allergies Allergies Coded Allergies Type Severity Reaction Last Updated Verified ceftazidime Allergy Severe Hives 04/05/15 Yes Sulfa (Sulfonamide Antibiotics) Allergy Intermediate Nausea 08/07/14 Yes carbamazepine Allergy Intermediate 05/05/15 Yes cefuroxime axetil Allergy Intermediate NOSE BLEED 08/07/14 Yes chlorpromazine HCl Allergy Intermediate Rash 08/07/14 Yes divalproex sodium Allergy Intermediate Rash 08/07/14 Yes doxepin Allergy Intermediate Rash 08/07/14 Yes lamotrigine Allergy Intermediate double vision, rash 05/05/15 Yes lithium Allergy Intermediate Rash 08/07/14 Yes nalbuphine Allergy Intermediate MORPHINE OK 05/05/15 Yes tetracycline Allergy Intermediate Rash 08/07/14 Yes vancomycin Allergy Intermediate Itching 08/07/14 Yes I S O L A T I O N *CONTACT* Allergy Unknown 06/01/18 Yes NSAIDS (Non-Steroidal Anti-Inflamma Adverse Reaction Mild upset stomach 08/26/15 Yes Physical Exam Physical Exam Constitutional: Well developed, well nourished, no acute distress, non-toxic appearance. [] HENT: Normocephalic, atraumatic, bilateral external ears normal, oropharynx moist, no oral exudates, nose normal. [] Eyes: PERRLA, EOMI, conjunctiva normal, no discharge. [] Neck: Normal range of motion, no tenderness, supple, no stridor. [] Cardiovascular:Heart rate regular rhythm, no murmur [] Lungs & Thorax: Bilateral breath sounds clear to auscultation [] Abdomen: Bowel sounds normal, soft, no tenderness, no masses, no pulsatile masses. [] Skin: Warm, dry, no erythema, no rash. [] Back: No tenderness, no CVA tenderness. [] Extremities: No tenderness, no cyanosis, no clubbing, ROM intact, no edema. [] Neurologic: Alert and oriented X 3, normal motor function, normal sensory function, no focal deficits noted. [] Psychologic: Affect normal, judgement normal, mood normal. [] EKG EKG [] Radiology/Procedures Radiology/Procedures Right shoulder AP and scapular x-rays 3 views HISTORY: Right shoulder pain. 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 There is an old traumatic deformity with defect from prior removed fixation screws at the proximal humeral shaft along with bulky hypertrophic ossification. There is bridging ossification at the coracoclavicular joint likely due to old injury. No acute fracture or dislocation of the shoulder is evident. IMPRESSION: No acute osseous injury. Old injuries are present as described above. CT angiography chest with contrast HISTORY: Shortness of breath, history of DVT, pneumonia. PQRS statement: CT scans at this facility use dose reduction including either automated exposure control, iterative reconstructions, and /or weight based radiation dosing via mA and kV modification when appropriate to reduce radiation dose to as low as reasonably achievable. TECHNIQUE: Helical CT imaging of the chest with 3-D MIP reconstructions of the pulmonary arteries to assess for emboli with 100 mL Omnipaque 300 intravenous contrast. FINDINGS: No pulmonary artery emboli. Thoracic aorta and esophagus are unremarkable. Heart size upper limits of normal. No enlarged adenopathy in the chest. Prominence of the bile ducts typical after cholecystectomy. Right renal upper pole cyst density of 11 units. Trachea and bronchi are unremarkable. Mild discoid atelectasis at the lung bases. No pneumothorax, pulmonary opacities or pleural effusions. There is a chronic nonunion fracture of the right mid clavicle with bulky hypertrophic ossification surrounding the medial clavicle fragment with focal high-grade stenosis of the right subclavian vein likely with some venous collaterals bridging across the anterior chest wall. There are old left rib deformities as well. IMPRESSION: 1. No pulmonary artery emboli. 2. 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 There are old healed right clavicle fracture as well.[] Course & Med Decision Making Course & Med Decision Making Pertinent Labs and Imaging studies reviewed. (See chart for details) ED course: Patient arrived, was placed in bed, and tolerated exam well. She was transported to and from radiology with any complications. Boarded improved symptoms with the treatments administered. After the return of the lab and imaging studies these were discussed with the patient who voiced understanding. All questions were answered. She was discharged in improved condition. Medical decision making: There is no evidence of meningitis, encephalitis, stroke syndrome, nor acute coronary syndrome. Patient's drug screen was positive for both cocaine and methamphetamine, neither of which would be accounted for the drugs that she admits to using. Stressed the importance of not using any drugs or medications that are not prescribed for her or from a legal distribution source. She voiced understanding. All questions were answered. She was discharged in improved condition.[] Dragon Disclaimer Dragon Disclaimer This electronic medical record was generated, in whole or in part, using a voice recognition dictation system. Departure Departure: Impression: Primary Impression: Headache Additional Impressions: Cellulitis COPD (chronic obstructive pulmonary disease) Drug abuse Right shoulder pain Disposition: HOME, SELF-CARE Condition: IMPROVED Referrals: LUCILLE ZAYAS (PCP) Follow-up in 2 days Patient Instructions: Cellulitis, Chronic Obstructive Pulmonary Disease, Chronic Pain, General Headache Without Cause Additional Instructions: Follow-up with your regular doctor in 2 days. Do not use any drugs or medicines that are not prescribed for you, they may kill you! Return to the ER if worsening pain, difficulty breathing, or any other concerns. Scripts Clindamycin Hcl (CLINDAMYCIN HCL) 150 Mg Capsule 2 CAP PO QID for skin infection, #80 CAP Prov: MAURO HOWE DO 11/24/18 Mupirocin (MUPIROCIN) 22 Gm Oint...g. 1 MERLIN TP TID for skin infection, #22 GM Prov: MAURO HOWE DO 11/24/18 Prochlorperazine Maleate (Compazine) 10 Mg Tablet 10 MG PO TID PRN PRN for NAUSEA/VOMITING, #30 TAB Prov: MAURO HOWE DO 11/24/18 Problem Qualifiers Primary Impression: Headache Headache type: unspecified Headache chronicity pattern: acute headache Intractability: not intractable Qualified Codes: R51 - Headache Additional Impressions: Cellulitis Site of cellulitis: unspecified site Qualified Codes: L03.90 - Cellulitis, unspecified COPD (chronic obstructive pulmonary disease) COPD type: unspecified COPD Qualified Codes: J44.9 - Chronic obstructive pulmonary disease, unspecified Right shoulder pain Chronicity: chronic Qualified Codes: M25.511 - Pain in right shoulder; G89.29 - Other chronic pain MAURO HOWE DO Nov 24, 2018 13:15
[2018-11-24 13:30] LABS: BASO # 0.2 x10^3/uL (0.0-0.2); BASO % 1 % (0-3); EOS # 0.1 x10^3/uL (0.0-0.7); EOS % 1 % (0-3); HEMATOCRIT 38.3 % (36.0-47.0); HEMOGLOBIN 12.5 g/dL (12.0-15.5); LYMPH % 31 % (24-48); MEAN CORPUSCULAR HEMOGLOBIN 29 pg (25-35); MEAN CORPUSCULAR HGB CONC 33 g/dL (31-37); MEAN CORPUSCULAR VOLUME 87 fL (79-100); MONO # 1.6 x10^3/uL (0.0-1.1); MONO % 10 % (0-9); NEUT # 9.5 x10^3uL (1.8-7.7); NEUT % 58 % (31-73); PLATELET COUNT 347 x10^3/uL (140-400); RED BLOOD COUNT 4.38 x10^6/uL (3.50-5.40); RED CELL DISTRIBUTION WIDTH 15.5 % (11.5-14.5); WHITE BLOOD COUNT 16.3 x10^3/uL (4.0-11.0)
[2018-11-24] MEDS ORDERED: IOHEXOL 350 MG/ML 100 ML VIAL. IV ONE (13:30)
[2018-11-24] MEDS ORDERED: IPRATRPIUM/ALBUTEROL 0.5/2.5MG 3 ML NEBU. NEB ONE (13:30)
[2018-11-24] MEDS ORDERED: METOCLOPRAMIDE HCL 10 MG/2 ML VIAL. IM ONE (13:30)
[2018-11-24] MEDS ORDERED: diphenhydrAMINE 50 MG/ML VIAL IVP ONE (13:30)
[2018-11-24] MEDS ORDERED: PROCHLORPERAZINE 10 MG/2 ML VIAL. IV ONE (13:30)
[2018-11-24 13:53] LABS: ALBUMIN/GLOBULIN RATIO 0.7 (1.0-1.7); CREATININE 1.1 mg/dL (0.6-1.0); TOTAL BILIRUBIN 0.3 mg/dL (0.2-1.0); TOTAL PROTEIN 7.1 g/dL (6.4-8.2)
[2018-11-24 13:57] LABS: PREG TEST PT QUAL NEGATIVE (NEG)
[2018-11-24 14:26] LABS: % ATYL 1 % (0-0); % EOS 1 % (0-5); % LYMPHS 26 % (24-48); % MONOS 10 % (0-10); % SEGS 62 % (35-66); PLT ESTIMATE ADEQUATE (ADEQUATE)
[2018-11-24 14:27] LABS: TOXIC GRANULATION PRESENT
--- NOTE | 2018-11-24 14:50 | RAD ---
CT angiography chest with contrast HISTORY: Shortness of breath, history of DVT, pneumonia. PQRS statement: CT scans at this facility use dose reduction including either automated exposure control, iterative reconstructions, and /or weight based radiation dosing via mA and kV modification when appropriate to reduce radiation dose to as low as reasonably achievable. TECHNIQUE: Helical CT imaging of the chest with 3-D MIP reconstructions of the pulmonary arteries to assess for emboli with 100 mL Omnipaque 300 intravenous contrast. FINDINGS: No pulmonary artery emboli. Thoracic aorta and esophagus are unremarkable. Heart size upper limits of normal. No enlarged adenopathy in the chest. Prominence of the bile ducts typical after cholecystectomy. Right renal upper pole cyst density of 11 units. Trachea and bronchi are unremarkable. Mild discoid atelectasis at the lung bases. No pneumothorax, pulmonary opacities or pleural effusions. There is a chronic nonunion fracture of the right mid clavicle with bulky hypertrophic ossification surrounding the medial clavicle fragment with focal high-grade stenosis of the right subclavian vein likely with some venous collaterals bridging across the anterior chest wall. There are old left rib deformities as well. IMPRESSION: 1. No pulmonary artery emboli. 2. 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 There are old healed right clavicle fracture as well. Electronically signed by: Reagan Rubio MD (11/24/2018 2:48 PM) [facility]
--- NOTE | 2018-11-24 14:56 | RAD ---
Right shoulder AP and scapular x-rays 3 views HISTORY: Right shoulder pain. 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 There is an old traumatic deformity with defect from prior removed fixation screws at the proximal humeral shaft along with bulky hypertrophic ossification. There is bridging ossification at the coracoclavicular joint likely due to old injury. No acute fracture or dislocation of the shoulder is evident. IMPRESSION: No acute osseous injury. Old injuries are present as described above. Electronically signed by: Reagan Rubio MD (11/24/2018 2:53 PM) [facility]
[2018-11-24 15:09] LABS: BARBITURATES NEG (NEG); BENZODIAZEPINES NEG (NEG); CANNABINOIDS POS (NEG); COCAINE POS (NEG); METHADONE NEG (NEG); OPIATES NEG (NEG); PHENCYCLIDINE NEG (NEG)
[2018-11-24 15:10] LABS: AMPHETAMINE/METHAMPHETAMINE POS (NEG)
[2018-11-24 15:31] LABS: BACTERIA,URINE 0 /HPF (0-FEW); BILIRUBIN,URINE NEG (NEG); CLARITY,URINE CLEAR; COLOR,URINE STRAW; GLUCOSE,URINE NEG (NEG); NITRITE,URINE NEG (NEG); RBC,URINE 0 /HPF (0-2); SQUAMOUS EPITHELIAL CELL,UR OCC /LPF; UROBILINOGEN,URINE 0.2 mg/dL (0.2 mg/dL); WBC,URINE OCC /HPF (0-4)
[2018-11-24 15:39] VITALS: BP 110/45
[2018-11-24] MEDS ORDERED: PROC10TA57 PO (15:45)
[2018-11-24] MEDS ORDERED: CLIN150C14 PO (15:45)
[2018-11-24] MEDS ORDERED: MUPI22OI2 TP (15:45)
== END 2018-11-24 16:05 | disposition home or self-care (01) ==
LOC: ER 12:35
DX: R51 Headache (principal); L03.115 Cellulitis of right lower limb; J44.9 Chronic obstructive pulmonary disease, unspecified; G89.29 Other chronic pain; M25.511 Pain in right shoulder; R11.2 Nausea with vomiting, unspecified; F41.9 Anxiety disorder, unspecified; F31.9 Bipolar disorder, unspecified; G43.909 Migraine, unspecified, not intractable, without status migrainosus; F19.10 Other psychoactive substance abuse, uncomplicated; F12.10 Cannabis abuse, uncomplicated; F17.210 Nicotine dependence, cigarettes, uncomplicated; Z99.3 Dependence on wheelchair; Z88.2 Allergy status to sulfonamides; Z88.8 Allergy status to other drugs, medicaments and biological substances; Z91.041 Radiographic dye allergy status; Z88.6 Allergy status to analgesic agent; Z88.1 Allergy status to other antibiotic agents
CPT/HCPCS: 36415; 71275; 73030; 80053; 80307; 81001; 83880; 84484; 84703; 85007; 85025; 85610; 87040; 96361; 96374; 96375; 99285; J0780; J1200; Q9967; J2765; J7030

== ENCOUNTER → 2018-11-30 | Outpatient (CLI) | payer MEDICARE, OTHER ==
[2018-11-24 15:39] VITALS: BP 110/45
[~2018-11-30] MED LIST changes: +CLIN150C14 PO; +PROC10TA57 PO
--- NOTE | 2018-11-30 14:23 | RAD ---
Left humerus, 2 views, 11/30/2018: HISTORY: Arm pain Comparison is made to a study from 11/02/2015. There has been further remodeling at the site of the old healed mid humeral shaft fracture. No new fracture or bony abnormality is detected. There is a periarticular ossification along the lateral aspect of the elbow joint likely due to old trauma. A surgical plate and screws is noted at the proximal ulnar level. IMPRESSION: 1. Old healed left humeral shaft fracture. 2. Periarticular ossification at the left elbow compatible with old trauma. Electronically signed by: Phillip Rodgers MD (11/30/2018 2:20 PM) [facility]
== END | disposition home or self-care (01) ==
LOC: PMG 11:07
PROVIDERS: ATTEND Physician Assistant
DX: M79.602 Pain in left arm (principal)
CPT/HCPCS: 73060

== ENCOUNTER 2019-10-09 04:57 | Emergency (ER) | payer MEDICARE, OTHER ==
[~2019-10-09] VITALS: Ht 160 cm; Wt 59.0 kg
[~2019-10-09 04:57] MED LIST changes: -CLON0.5T11 PO; +CLON0.5T4 PO; +FLUO20CA20 PO; -FLUO20CA8 PO; -GLIM2TAB2 PO; +GLIM2TAB7 PO; -LINE600T PO; +LINE600T12 PO; -TIZA4TAB PO; +TIZA4TAB2 PO
[2019-10-09 05:00] VITALS: BP 141/90
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
[2019-10-09] MEDS: oxyCODONE/APAP 5/325 1 TAB TABLET PO ONE (05:45)
--- NOTE | 2019-10-09 05:50 | RAD ---
Left forearm x-rays 2 views HISTORY: Left distal forearm injury, pain, history of prior surgery. FINDINGS: ORIF with fixation plate and screws of the proximal ulna shaft no loosening of the hardware. Chronic appearing ossicles along the radial collateral ligament at the elbow. The elbow demonstrates bone spurs, there is cortical irregularity at the radial head which could be related to bone spurring although a superimposed fracture is not excluded. The distal radius and ulna demonstrate no fracture or dislocation. There is distal forearm and wrist soft tissue edema and swelling. IMPRESSION: 1. No acute osseous injury of the distal left forearm. There is distal forearm soft tissue edema and swelling. 2. 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 There is cortical irregularity of the radial head likely related to bone spurring, although if the patient has proximal forearm or elbow pain, radial head cortical irregularity due to a fracture would also be a consideration. 3. Chronic ossicles along the radial collateral ligament likely due to an old ligament injury. Electronically signed by: Reagan Rubio MD (10/09/2019 5:47 AM) [id number]
== END 2019-10-09 06:50 | disposition home or self-care (01) ==
LOC: ER 04:57
DX: S60.212A Contusion of left wrist, initial encounter (principal); J44.9 Chronic obstructive pulmonary disease, unspecified; G43.909 Migraine, unspecified, not intractable, without status migrainosus; F17.210 Nicotine dependence, cigarettes, uncomplicated; Z88.1 Allergy status to other antibiotic agents; Z88.2 Allergy status to sulfonamides; Z88.8 Allergy status to other drugs, medicaments and biological substances; Z88.6 Allergy status to analgesic agent; Z91.041 Radiographic dye allergy status; W23.0XXA Caught, crushed, jammed, or pinched between moving objects, initial encounter; Y93.89 Activity, other specified; Y92.89 Other specified places as the place of occurrence of the external cause; Y99.8 Other external cause status
CPT/HCPCS: 29125; 73090; 99283

== ENCOUNTER → 2019-11-01 | Outpatient (CLI) | payer MEDICARE, OTHER ==
[2019-10-09 05:00] VITALS: BP 141/90
[~2019-11-01] MED LIST changes: +LORA0.5T21 PO; -LORA0.5T96 PO; -PANT20TA3 PO; +PANT20TA4 PO; -WARF-78 PO; +WARF5TAB2 PO
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
== END | disposition home or self-care (01) ==
LOC: PMG 10:46
PROVIDERS: ATTEND Physician Assistant Medical
DX: M25.842 Other specified joint disorders, left hand (principal); M19.032 Primary osteoarthritis, left wrist; M77.9 Enthesopathy, unspecified; M25.742 Osteophyte, left hand; M25.832 Other specified joint disorders, left wrist; V98.8XXA Other specified transport accidents, initial encounter; Y93.89 Activity, other specified; Y92.89 Other specified places as the place of occurrence of the external cause; Y99.8 Other external cause status
CPT/HCPCS: 73070; 73100; 73120

== ENCOUNTER 2020-12-12 16:05 | Observation (INO) | payer MEDICARE, OTHER ==
[~2020-12-12] VITALS: Ht 160 cm; Wt 71.3 kg
[~2020-12-12 16:05] MED LIST changes: -CIPR500T IV; +CIPR500T2 IV; -CLIN150C14 PO; +CLIN150C15 PO; -CLIN300C8; -CLIN300C8 PO; +CLIN300C9; +CLIN300C9 PO; -LACT1CAP25; -LACT1CAP25 PO; +LACT1CAP39; +LACT1CAP39 PO; -RISP0.5T3 PO; +RISP0.5T62 PO; -RISP1TAB3 PO; +RISP1TAB88 PO
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
[2020-12-12] MEDS ORDERED: IV NORMAL SALINE 1,000ML 1,000 ML IV ONE ×2 (17:00→23:15)
[2020-12-12] MEDS ORDERED: IV DEXTROSE 5% 500 ML IV ONE (17:00)
[2020-12-12] MEDS ORDERED: DEXTROSE 25% 10 ML DISP.SYRIN. IV ONE ×2 (17:00)
--- NOTE | 2020-12-12 17:30 | EKG ---
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
--- NOTE | 2020-12-12 17:44 | RAD ---
XR FEMUR_RIGHT, XR RT TIBIA+FIBULA , XR HIP_RT 2-3VIEWS dated 12/12/2020 4:48 PM. History: Reason: FALL / Spl. Instructions: / History: Comparison: None. Findings: Right hip 2 views: No fracture or dislocation is seen. Hip joint space appears fairly well maintained . IMPRESSION: No acute abnormality. Right femur 2 views: There is a fixation screw through the distal femur and there is also evidence of prior ACL repair. No acute fracture or dislocation is seen. There is no apparent foreign body or chris tructive process. IMPRESSION: Postoperative changes. No acute abnormality. Right tibia and fibula 2 views: No acute fracture or dislocation is seen. There is a metallic fixatio n device leg just distal to the knee and laterally. This appears to be outside of bony structures. No adjacent bony defect is seen. There are mild arthritic changes at the knee. There is evidence of pre vious ACL repair. IMPRESSION: No apparent acute bony abnormality. There is a metallic fixation device just lateral to t he knee. This appears to be external to the adjacent bony structures. The etiology of this is uncerta in. Correlation with prior surgical history may be useful. Impression: 1. No acute bony abnormality evident. Electronically signed by: Philip Villalobos Jr., MD (12/12/2020 5:42 PM) [facility]
[2020-12-12 18:14] LABS: BASO # 0.1 x10^3/uL (0.0-0.2); BASO % 1 % (0-3); EOS # 0.6 x10^3/uL (0.0-0.7); EOS % 4 % (0-3); HEMATOCRIT 32.4 % (36.0-47.0); HEMOGLOBIN 10.5 g/dL (12.0-15.5); LYMPH # 3.3 x10^3/uL (1.0-4.8); LYMPH % 23 % (24-48); MEAN CORPUSCULAR HEMOGLOBIN 29 pg (25-35); MEAN CORPUSCULAR HGB CONC 32 g/dL (31-37); MEAN CORPUSCULAR VOLUME 88 fL (79-100); MONO # 1.8 x10^3/uL (0.0-1.1); MONO % 12 % (0-9); NEUT # 9.1 x10^3uL (1.8-7.7); NEUT % 61 % (31-73); PLATELET COUNT 263 x10^3/uL (140-400); RED BLOOD COUNT 3.67 x10^6/uL (3.50-5.40); RED CELL DISTRIBUTION WIDTH 15.8 % (11.5-14.5); WHITE BLOOD COUNT 14.9 x10^3/uL (4.0-11.0)
[2020-12-12] MEDS ORDERED: IV DEXTROSE 10% 500 ML IV ONE (18:15)
[2020-12-12 18:23] LABS: ALBUMIN/GLOBULIN RATIO 0.9 (1.0-1.7); CALCIUM 7.4 mg/dL (8.5-10.1); CREATININE 3.5 mg/dL (0.6-1.0); GFR 13.8; POTASSIUM 3.1 mmol/L (3.5-5.1); TOTAL PROTEIN 6.2 g/dL (6.4-8.2)
[2020-12-12] MEDS ORDERED: POTASSIUM CHLORIDE 20 MEQ TABLET.ER. PO ONE (18:45)
[2020-12-12 19:46] LABS: AMPHETAMINE/METHAMPHETAMINE POS (NEG); BARBITURATES POS (NEG); BENZODIAZEPINES POS (NEG); CANNABINOIDS POS (NEG); COCAINE POS (NEG); METHADONE NEG (NEG); OPIATES NEG (NEG); PHENCYCLIDINE NEG (NEG)
[2020-12-12 19:51] LABS: BILIRUBIN,URINE NEG (NEG); CLARITY,URINE HAZY; COLOR,URINE YELLOW; GLUCOSE,URINE NEG (NEG)
[2020-12-12 19:52] LABS: BACTERIA,URINE MANY /HPF (0-FEW); NITRITE,URINE NEG (NEG); SQUAMOUS EPITHELIAL CELL,UR FEW /LPF; UROBILINOGEN,URINE 0.2 mg/dL (0.2 mg/dL)
[2020-12-12] MEDS: IV DEXTROSE 5% - 0.9 % NACL 1,000 ML IV SCH (21:00)
[2020-12-12 21:13] VITALS: BP 114/55
[2020-12-12 22:00] VITALS: BP 86/59
[2020-12-12] MEDS ORDERED: MIRA25TA PO (22:50)
[2020-12-12] MEDS ORDERED: DIAZ5TAB4 PO (22:50)
[2020-12-12] MEDS ORDERED: PREG150C PO (22:50)
[2020-12-12] MEDS ORDERED: OXCA150T19 PO (22:50)
[2020-12-12] MEDS ORDERED: IPRA4AER INH (22:50)
[2020-12-12 23:00] VITALS: BP 76/37
[2020-12-13] VITALS (7 sets, daily range): BP systolic 85–112; BP diastolic 44–67
[2020-12-13] MEDS: IV DEXTROSE 5% - 0.9 % NACL 1,000 ML IV SCH (06:30)
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
--- NOTE | 2020-12-13 09:46 | DS ---
DATE OF DISCHARGE: 12/13/2020 ATTENDING PHYSICIAN: Dr. Limon. HOSPITAL COURSE: This 50-year-old lady was admitted to my service last night on the evening of 12/12. I came in early in the morning of 12/13 to see her. Before I could do that, she was alert, she ambulated out of the hospital and left against medical advice. Once again, the patient left AMA before I had a chance to see her. RAJINDER DR: Yonny TID: [id number]
== END 2020-12-13 08:08 | disposition left against medical advice (07) ==
LOC: ER 16:05 → ICU 19:42 → INTOOBSV 19:42
PROVIDERS: ADMIT Hospitalist; ATTEND Hospitalist
DX: E86.0 Dehydration (principal); E16.2 Hypoglycemia, unspecified; F41.9 Anxiety disorder, unspecified; F32.9 Major depressive disorder, single episode, unspecified; J44.9 Chronic obstructive pulmonary disease, unspecified; G43.909 Migraine, unspecified, not intractable, without status migrainosus; J18.9 Pneumonia, unspecified organism; F17.210 Nicotine dependence, cigarettes, uncomplicated; Z90.49 Acquired absence of other specified parts of digestive tract; Z90.710 Acquired absence of both cervix and uterus; Z79.899 Other long term (current) drug therapy; Z98.890 Other specified postprocedural states; V47.5XXA Car driver injured in collision with fixed or stationary object in traffic accident, initial encounter; Y93.89 Activity, other specified; Y92.89 Other specified places as the place of occurrence of the external cause; Y99.8 Other external cause status
CPT/HCPCS: 36415; 73502; 73552; 73590; 80053; 80307; 81001; 82947; 83605; 83735; 85025; 87040; 87077; 87086; 87186; 93005; 96360; 96361; 99284; G0378; J7030; J7042; J7060; G0379; 99285-25